=== PATIENT | female | born 1960 | race Caucasian/White ===

== ENCOUNTER 2019-07-19 14:43 | Emergency (ER) | payer SELFPAY ==
[~2019-07-19] VITALS: Ht 149.9 cm; Wt 54.4 kg
--- OUTSIDE RECORDS SUMMARY | 2019-07-19 14:45 | XMS REPORT | Clinical Summary ---
Author Author [facility] Organization [facility] Address Unknown Phone Unavailable Care Team Providers Care Sketch Artist Name Role Phone Sharpless PCP Allergies Comments Active Allergy Reactions Severity Noted Date blisters Latex, Natural Rubber Rash Low 02/22/2017 Penicillins Nausea And High 02/22/2017 Vomiting, Rash Pentazocine Lactate Nausea And 09/13/2017 Vomiting Medications End Date Status Medication Sig Dispensed Refills Start Date Active acyclovir (ZOVIRAX) 400 Take 400 mg 0 MG tablet by mouth daily. Active albuterol (ACCUNEB) 1.25 Take 1 ampule 0 mg/3 mL nebulizer by solution nebulization every 6 (six) hours as needed for Wheezing or Shortness of Breath. Active Problems Problem Noted Date Headache 09/13/2017 Thrombocytopenia 09/13/2017 Migrainous headache without aura 09/13/2017 Carotid arterial disease 09/13/2017 History of TIA (transient ischemic attack) 02/12/2017 Overview: 02/2017 [facility] Miranda Irizarry Adenovillous polyp of colon 02/12/2017 Overview: removed during colonoscopy Coronary artery disease 11/11/2016 Overview: 11/11/2016 40% blockage one artery Left side heart; tx'd with Atorvastatin (none since 03/2017 due to no insurance) Osteoarthritis, multiple sites Benign essential HTN Depression with anxiety Family History Medical History Relation Name Comments Alcohol abuse Brother Depression Brother maniac depressive Heart attack Father Hypertension Father No Known Problem Maternal Grandfather No Known Problem Maternal Grandmother Aneurysm Mother CEREBRAL Arthritis Mother Heart failure Mother No Known Problem Paternal Grandfather No Known Problem Paternal Grandmother Diabetes Sister Obesity Sister Relation Name Status Comments Brother mva (Age 50) Father (Age 82) Maternal Grandfather Maternal Grandmother Mother (Age 76) Paternal Grandfather Paternal Grandmother Sister Alive Social History Date Tobacco Use Types Packs/Day Years Used Current Every Day Smoker Cigarettes 1 40 Smokeless Tobacco: Never Used Tobacco Cessation: Ready to Quit: Yes; Counseling Given: Yes Alcohol Use Drinks/Week oz/Week Comments Yes 1 Standard 0.6 drinks or equivalent Sex Assigned at Date Recorded Not on file Industry Job Start Date Occupation Not on file Not on file Not on file Travel End Travel History Travel Start No recent travel history available. Last Filed Vital Signs Not on file Plan of Treatment Not on file Results Not on fileafter 07/18/2018 Advance Directives For more information, please contact: [address] [phone] Date Inactivated Comments Code Status Date Activated 09/15/2017 2:58 PM Partial Code 09/14/2017 12:26 PM This code status was determined by: Patient Drug Protocol After Arrest Occurs? Yes Mechanical Ventilation with Intubation? No Bag/Mask? Yes Internal/External Pacemaker? Yes Transfer to Critical Care? Yes Chest Compressions? Yes Defibrillation/Cardioversion? Yes 02/24/2017 6:03 PM Full Code 02/23/2017 12:32 AM This code status was determined by: Patient
--- OUTSIDE RECORDS SUMMARY | 2019-07-19 14:46 | XMS REPORT ---
Author Author [facility] Address Unknown Phone Unavailable Care Team Providers Care Drier Attendant Name Role Phone PIPPA PALOMINO Unavailable Unavailable BENNY Vivek TORRES Unavailable Unavailable KOSCIUK, MARIBEL Unavailable Unavailable RAY-DRODDY, ARTURO GWENDOLYN Unavailable Unavailable GRONING, DESIRAE Unavailable Unavailable NALAM, SLOAN YARED Unavailable Unavailable Problems This patient has no known problems. Allergies, Adverse Reactions, Alerts This patient has no known allergies or adverse reactions. Medications This patient has no known medications. Results Test Description Test Time Test Comments Text Results Atomic Results Result Comments XR HIP 2-3 VIEWs W AP PELVIS 2018-04-04 15:35:44 Pelvis and right hip 3 views:History: Right hip pain after fallingAn AP view of the pelvis and 2 view examination of the right hip were obtained.No pelvic fracture is identified. There is no widening of the pubic symphysis orsacroiliac joints. The sacral neural arches appear symmetric and intact.AP and frog-leg lateral views of the right hip show no fracture or dislocation.No joint space narrowing is noted. The soft tissues show no significantabnormality.Impression: No significant bony or joint abnormality.This final report was electronically signed by Dr Mil Chang MD 04/04/20183:29 PMDictated By: Alberto CHANG: 04/04/2018 15:35 XR L-S SPINE MIN 4 V 2018-04-04 15:35:04 Lumbar spine series 5 views:History: Fell, low back painAP, lateral, spot lateral and both oblique views were obtained. No fracture orsubluxation. No disc space narrowing is noted. A vacuum disc is present at L5-S1and there is facet arthrosis also noted at this level. No pars defects arenoted. The pedicles are intact.Impression: No acute abnormality of the lumbar spine. Degenerative changes atthe lumbosacral region as noted.This final report was electronically signed by Dr Mil Chang MD 04/04/20183:28 PMDictated By: Alberto CHANG: 04/04/2018 15:35 CULTURE, BLOOD 2018-01-11 22:55:00 er 5 Specimen: BloodCollected: 01/06/2018 20:20 Status: Final Last Updated: 01/11/2018 22:54 (1) er 5 Culture Result (Final) (Final) No Growth After 5 Days HEPATITIS C /w REFLEX 2018-01-11 07:53:00 HEPATITIS C AB (test dqbw=311972) >11.0 s/co ratio 0.0-0.9 HEPATITIS A IGM ANTIBODY(MAILOUT)2018-01-10 07:28:00* Test Item Value Reference Range Comments HEP A AB, IGM (test bgts=001038) Negative Negative XR ABD SERIES W/PA [id number] 07:03:33Procedure: XR ABD SERIES W/PA CXROrder Date: 01/09/2018 4:50 PMOrdering Provider: [facility] Indication: NV: Nausea and VomitingComparison: NoneFindings:Lungs are clear. Heart size is within normal limits.Abdomen views show non-obstructive bowel gas pattern. No pneumoperitoneum.Moderate volume stool burden.Surgical clips are seen in the right upper quadrant of the abdomen.Impression:No acute pulmonary process.Nonobstructive bowel gas pattern.This final report was electronically signed by Dr Mario Fish MD 01/10/20186:57 AMDictated By: ALFONZO FISHKDate: 01/10/2018 07:03CULTURE, [id number] 06:53:00Specimen: Urine SpecimensCollected: 01/07/2018 17:50 Status: Final Last Updated: 01/10/2018 06:53 Culture Result (Final) (Final) No Growth After 48 Hours CULTURE, [id number] 11:09:00er 5Specimen: Urine SpecimensCollected: 01/06/2018 21:30 Status: Final Last Updated: 01/08/2018 22:06 (1) er 5 Culture Result (Final) (Final) >100,000 cc/mL Gram Negative Bacilli Isolate (Final) (Final) Escherichia coli Amoxicillin/clavu 4 S Ampicillin >=32 R Aztreonam <=1 S Cefazolin <=4 S Cefepime <=1 S Ceftriaxone <=1 S Ciprofloxacin 0.5 S Gentamicin >=16 R Imipenem <=0.25 S Levofloxacin 1 S Meropenem <=0.25 S Nitrofurantoin <=16 S Tetracycline >=16 R Trimeth/Sulfa >=320 R ESBL Negative - Result before changed by [id number] on 01/08/2018 09:40: Isolate (Prelim) (Prelim) < Escherichia coli CULTURE, [id number] 11:00:00er 5Specimen: BloodCollected: 01/06/2018 20:05 Status: Final Last Updated: 01/08/2018 22:20 (1) er 5 Culture Result (Final) (Final) Gram Negative Bacilli Isolate (Final) (Final) Escherichia coli Amoxicillin/clavu 8 S Ampicillin >=32 R Aztreonam <=1 S Cefazolin < =4 S Cefepime <=1 S Ceftriaxone <=1 S Ciprofloxacin 1 S Gentamicin >=16 R Imipenem <=0.25 S Levofloxacin 1 S Meropenem <=0.25 S Tetracycline >=16 R Trimeth/Sulfa >=320 R ESBL Negative - Gram Stain (Final) (Final) Report called to Nurse Luke in ER @1345cdw 01/07/2018rb. 1 of 2 blood cultures positive Gram Negative Bacilli Result before changed by [id number] on 01/08/2018 14:31: Gram Stain (Prelim) (Prelim) Report called to Nurse Luke in ER @1345cdw 01/07/2018rb. -Gram Negative Bacilli 1 of 2 blood cultures positive Result before changed by [id number] on 01/08/2018 09:39: Culture Result (Prelim) (Prelim) -Escherichia coli ERYTHROCYTE SED RATE 2018-01-09 06:28:00* Test Item Value Reference Range Comments Sed Rate (test code=ESR) 44 mm/hr 0-35 EFFECTIVE 02-12-2014, THE METHODOLOGY USED FOR ERYTHROCYTE SEDIMENTATION RATE HAS CHANGED. THE NORMAL RANGES HAVE CHANGED. PLEASE NOTE THAT RANGES ARE DEFINED BY THE AGE OF THE PATIENT. NEW REFERENCE RANGES: Females 0-49 years old=0-25 mm/hr Females 50-999 years old=0- 35 mm/hr Males 0-49 years old=0-20 mm/hr Males 50-999 years old=0-25 mm/hr [id number] 06:09:00* Test Item Value Reference Range Comments Glucose (test code=GLU) 118 mg/dl 75-110 BUN (test code=BUN) 10.0 mg/dl 6.0-17.0 Creatinine (test code=CREA) 0.5 mg/dl 0.4-1.2 Sodium (test code=NA) 142 mmol/l 137-145 Potassium (test code=K) 3.6 mmol/l 3.5-5.0 Chloride (test code=CL) 110 mmol/l 98-107 CO2 (test code=CO2) 27 mmol/l 22-30 Calcium (test code=CALC) 8.2 mg/dl 8.4-10.2 T Protein (test code=TP) 5.8 gm/dl 5.1-8.7 Albumin (test code=ALB) 2.7 gm/dl 3.5-4.6 A/G Ratio (test code=AGRAT) 0.9 % 1.1-2.2 AST (SGOT) (test code=AST) 59 U/L 11-36 ALT (SGPT) (test code=ALT) 68 U/L 11-40 Alkaline Phos (test code=ALKP) 78 U/L 47-114 Total Bilirubin (test code=TBIL) 0.4 mg/dl 0.2-1.2 Globulin (test code=GLOBU) 3.1 gm/dl 2.3-3.5 Calcium, Corrected (test code=CALCCORR) 9.2 mg/dl 8.4-10.2 Various formulas exist for corrected serum calcium results, each yielding different values. This corrected result was based on the formula: Corrected Calcium=SerumCalcium + [0.8 * ( 4 - SerumAlbumin)] EGFR if (test code=EGFRAA) >60 mL/min/1.73m\\S\\2 EGFR if Non- (test code=EGFRNA) >60 mL/min/1.73m\\S\\2 Estimated Glomerular Filtration Rate (eGFR) Reference Intervals Decision Points for 18 years and older and average body mass: >=60 Does not exclude kidney disease. 30 - 59 Suggests moderate chronic kidney disease and indicates the need for further investigation including assessment of proteinuria and cardiovascular factors. < 30 Usually indicates a need for referral for assessment and management of chronic kidney failure. CBC WITH AUTO [id number] 05:47:00* Test Item Value Reference Range Comments WBC (test code=WBC) 5.98 10\\S\\3/ul 4.80-10.80 RBC (test code=RBC) 3.85 10\\S\\6/ul 4.20-5.40 Hemoglobin (test code=HGB) 12.2 gm/dl 12.0-14.0 Hematocrit (test code=HCT) 36.7 % 37.0-47.0 MCV (test code=MCV) 95.3 fL 81.0-99.0 MCH (test code=MCH) 31.7 pg 27.0-31.0 MCHC (test code=MCHC) 33.2 gm/dl 33.0-37.0 RDW (test code=RDWVC) 13.3 % 11.5-14.5 Platelet (test code=PLT) 141 10\\S\\3/ul 130-400 MPV (test code=MPV) 10.6 fL 7.4-10.4 "NOT MEASURED" RESULTS ARE DISPLAYED WHEN THE INSTRUMENT HAS A SUPPRESSED OR UNREPORTABLE RESULT. THIS WILL MOST OFTEN HAPPEN WITH THE MPV WHEN THERE IS AN ABNORMAL PLATELET DISTRIBUTION DUE TO A CR ITICAL LOW VALUE OR PLATELET CLUMPING. THE RDW MAY BE SUPPRESSED IF THERE ARE MULTIPLE PEAKS PRESENT ON THE RBC HISTOGRAM. IN THIS CASE, A MANUAL REVIEW OF THE SLIDE WILL BE PERFORMED, AND RBC MORPHOLOGY WILL BE NOTED ON THE REPORT. NE% (test code=NE) 63.9 % 42.0-75.0 LY% (test code=LY) 23.1 % 13.0-42.0 MO% (test code=MO) 10.2 % 4.0-14.0 EO% (test code=EO) 2.0 % 1.0-3.0 BA% (test code=BA) 0.3 % 1.0-3.0 IG% (test code=IG%) 0.5 % 0.0-0.4 CBC AUTO diffHEPATITIS B CORE AB, [id number] 06:18:00* Test Item Value Reference Range Comments HEPATITIS B CORE AB TOTAL (test code=HEPBCORE) 0.02 Negative HEP B SURFACE [id number] 06:18:00* Test Item Value Reference Range Comments FT (test code=HBSAB) Negative (qualifier value) Negative Hep B Surface Ab (Signal Value) (test code=HBSAB.SV) 0.00 mIU/mL 0.00-4.99 aHBs Signal Cutoff Interpretation Guide: < 5.00 mIU/mLNegativePatient is considered to be not immuned to infection with HBV. >=5.00 and 12.0 mIU/mLIndeterminateUnable to determine if anti-HBs is present at levels consistent with immunity. Patient's immune status should be further assessed by considering other clinical information or retesting another specimen drawn at a later time. > 12.0 mIU/mLPositiveAnti-HBs detected at > 10 mIU/ml. Patient is considered to be immune to infection with HBV. It has not been determined what the clinical significance is for values greater than >=12 mIU/mL, other than the individual is considered to be immuned to HBV infection. [id number] 05:04:00* Test Item Value Reference Range Comments Glucose (test code=GLU) 125 mg/dl 75-110 BUN (test code=BUN) 14.0 mg/dl 6.0-17.0 Creatinine (test code=CREA) 0.6 mg/dl 0.4-1.2 Sodium (test code=NA) 144 mmol/l 137-145 Potassium (test code=K) 3.9 mmol/l 3.5-5.0 Chloride (test code=CL) 110 mmol/l 98-107 CO2 (test code=CO2) 27 mmol/l 22-30 Calcium (test code=CALC) 8.2 mg/dl 8.4-10.2 T Protein (test code=TP) 6.3 gm/dl 5.1-8.7 Albumin (test code=ALB) 3.0 gm/dl 3.5-4.6 A/G Ratio (test code=AGRAT) 0.9 % 1.1-2.2 AST (SGOT) (test code=AST) 60 U/L 11-36 ALT (SGPT) (test code=ALT) 73 U/L 11-40 Alkaline Phos (test code=ALKP) 91 U/L 47-114 Total Bilirubin (test code=TBIL) 0.5 mg/dl 0.2-1.2 Globulin (test code=GLOBU) 3.3 gm/dl 2.3-3.5 Calcium, Corrected (test code=CALCCORR) 9.0 mg/dl 8.4-10.2 Various formulas exist for corrected serum calcium results, each yielding different values. This corrected result was based on the formula: Corrected Calcium=SerumCalcium + [0.8 * ( 4 - SerumAlbumin)] EGFR if (test code=EGFRAA) >60 mL/min/1.73m\\S\\2 EGFR if Non- (test code=EGFRNA) >60 mL/min/1.73m\\S\\2 Estimated Glomerular Filtration Rate (eGFR) Reference Intervals Decision Points for 18 years and older and average body mass: >=60 Does not exclude kidney disease. 30 - 59 Suggests moderate chronic kidney disease and indicates the need for further investigation including assessment of proteinuria and cardiovascular factors. < 30 Usually indicates a need for referral for assessment and management of chronic kidney failure. [id number] 05:04:00* Test Item Value Reference Range Comments Magnesium (test code=MG) 2.2 mg/dl 1.6-2.3 CBC WITH AUTO [id number] 04:45:00* Test Item Value Reference Range Comments WBC (test code=WBC) 7.54 10\\S\\3/ul 4.80-10.80 RBC (test code=RBC) 3.92 10\\S\\6/ul 4.20-5.40 Hemoglobin (test code=HGB) 12.7 gm/dl 12.0-14.0 Hematocrit (test code=HCT) 37.7 % 37.0-47.0 MCV (test code=MCV) 96.2 fL 81.0-99.0 MCH (test code=MCH) 32.4 pg 27.0-31.0 MCHC (test code=MCHC) 33.7 gm/dl 33.0-37.0 RDW (test code=RDWVC) 13.5 % 11.5-14.5 Platelet (test code=PLT) 142 10\\S\\3/ul 130-400 MPV (test code=MPV) 10.6 fL 7.4-10.4 "NOT MEASURED" RESULTS ARE DISPLAYED WHEN THE INSTRUMENT HAS A SUPPRESSED OR UNREPORTABLE RESULT. THIS WILL MOST OFTEN HAPPEN WITH THE MPV WHEN THERE IS AN ABNORMAL PLATELET DISTRIBUTION DUE TO A CR ITICAL LOW VALUE OR PLATELET CLUMPING. THE RDW MAY BE SUPPRESSED IF THERE ARE MULTIPLE PEAKS PRESENT ON THE RBC HISTOGRAM. IN THIS CASE, A MANUAL REVIEW OF THE SLIDE WILL BE PERFORMED, AND RBC MORPHOLOGY WILL BE NOTED ON THE REPORT. NE% (test code=NE) 68.6 % 42.0-75.0 LY% (test code=LY) 15.9 % 13.0-42.0 MO% (test code=MO) 13.1 % 4.0-14.0 EO% (test code=EO) 1.3 % 1.0-3.0 BA% (test code=BA) 0.4 % 1.0-3.0 IG% (test code=IG%) 0.7 % 0.0-0.4 URINALYSIS WITH [id number] 18:13:00* Test Item Value Reference Range Comments Color (test code=UCOLR) YELLOW Clarity (test code=UCLAR) SL CLOUDY Glucose (test code=UGLUC) NEGATIVE NEGATIVE Bilirubin (test code=UBILI) NEGATIVE NEGATIVE Ketones (test code=UKET) NEGATIVE NEGATIVE Specific [place] (test code=USPGR) >=1.030 1.005-1.030 Blood (test code=UBLD) LARGE NEGATIVE PH (test code=UPH) 6.0 4.5-8.0 Protein (test code=UPROT) 100 NEGATIVE Urobilinogen (test code=U UROB) 4.0 >0.2 Nitrite (test code=UNITR) NEGATIVE NEGATIVE Leukocyte Esterase (test code=ULEUK) NEGATIVE NEGATIVE WBC (test code=WBCUR) 40-50 0-5 RBC (test code=RBCUR) 20-30 0-5 Epithial Cells (test code=U EPI) 30-40 0-10 Mucous (test code=UMUC) Trace None Seen Bacteria (test code=UBACT) Trace None Seen,Trace ER 5CT ABD/ PELVIS W/O CON (RENAL STONE)2018-01-07 18:07:05er 4Procedure: CT ABD/ PELVIS W/O CON (RENAL STONE)Exam date: 01/07/2018 4:41 PMOrdering Provider: CAYETANO MENDOZAClinical Indication: abnormal labsComparison: NoneTechnique: Multiple axial helical CT images of the abdomen and pelvis wer eobtained . Coronal and sagittal reformatted images were also obtained.Th is exam was performed according to the our departmental dose-optimizationprogram which includes automated exposure control, adjustment of the mA and/orkV accord ing to patient size and/or use of iterative reconstruction techniques.Findings:P osterior right diaphragmatic Bochdalek hernia.Partially visualized noncontrast e valuation of the liver and spleen isunremarkable. Surgical absence of the gallbl adder. Pancreas is unremarkable.Bilateral adrenal glands are unremarkable.Bilate ral kidneys are unremarkable without evidence of radiopaque nephroureteralcalcul i. There is mild left renal pelvic dilation. Small bowel isnonobstructive. No pn eumoperitoneum or pathologic adenopathy is identified onthis noncontrasted exami nation.Appendix is unremarkable. Appendicolith at the tip. Patchy colonic stool. Scattered colonic diverticulosis.No free fluid in the pelvis. Small fat-containi ng umbilical hernia. Bladder isunremarkable. Uterus is surgically absent.Osseous structures are nonacute.Impression:No radiopaque nephroureteral calculi. Mild l eft renal pelvic dilation withoutobstructive stone. No substantial hydroureteron ephrosis.Scattered colonic diverticulosis.This final report was electronically s igned by Dr Gaby Jimenez MD 01/07/2018 6:00PMDictated By: GABY JIMENEZDate: 01/07 18:07LACTIC ACID [id number] 17:25:00* Test Item Value Reference Range Comments LACTATE (test code=LAC) 1.2 mmol/l 0.7-2.0 er [id number] 17:25:00* Test Item Value Reference Range Comments Glucose (test code=GLU) 143 mg/dl 75-110 BUN (test code=BUN) 12.0 mg/dl 6.0-17.0 Creatinine (test code=CREA) 0.6 mg/dl 0.4-1.2 Sodium (test code=NA) 140 mmol/l 137-145 Potassium (test code=K) 3.7 mmol/l 3.5-5.0 Chloride (test code=CL) 106 mmol/l 98-107 CO2 (test code=CO2) 24 mmol/l 22-30 Calcium (test code=CALC) 8.5 mg/dl 8.4-10.2 T Protein (test code=TP) 6.5 gm/dl 5.1-8.7 Albumin (test code=ALB) 3.3 gm/dl 3.5-4.6 A/G Ratio (test code=AGRAT) 1.0 % 1.1-2.2 AST (SGOT) (test code=AST) 77 U/L 11-36 ALT (SGPT) (test code=ALT) 81 U/L 11-40 Alkaline Phos (test code=ALKP) 86 U/L 47-114 Total Bilirubin (test code=TBIL) 0.9 mg/dl 0.2-1.2 Globulin (test code=GLOBU) 3.2 gm/dl 2.3-3.5 Calcium, Corrected (test code=CALCCORR) 9.1 mg/dl 8.4-10.2 Various formulas exist for corrected serum calcium results, each yielding different values. This corrected result was based on the formula: Corrected Calcium=SerumCalcium + [0.8 * ( 4 - SerumAlbumin)] EGFR if (test code=EGFRAA) >60 mL/min/1.73m\\S\\2 EGFR if Non- (test code=EGFRNA) >60 mL/min/1.73m\\S\\2 Estimated Glomerular Filtration Rate (eGFR) Reference Intervals Decision Points for 18 years and older and average body mass: >=60 Does not exclude kidney disease. 30 - 59 Suggests moderate chronic kidney disease and indicates the need for further investigation including assessment of proteinuria and cardiovascular factors. < 30 Usually indicates a need for referral for assessment and management of chronic kidney failure. er [facility] WITH AUTO [id number] 17:15:00* Test Item Value Reference Range Comments WBC (test code=WBC) 9.74 10\\S\\3/ul 4.80-10.80 RBC (test code=RBC) 4.11 10\\S\\6/ul 4.20-5.40 Hemoglobin (test code=HGB) 13.0 gm/dl 12.0-14.0 Hematocrit (test code=HCT) 38.7 % 37.0-47.0 MCV (test code=MCV) 94.2 fL 81.0-99.0 MCH (test code=MCH) 31.6 pg 27.0-31.0 MCHC (test code=MCHC) 33.6 gm/dl 33.0-37.0 RDW (test code=RDWVC) 13.4 % 11.5-14.5 Platelet (test code=PLT) 149 10\\S\\3/ul 130-400 MPV (test code=MPV) 10.5 fL 7.4-10.4 "NOT MEASURED" RESULTS ARE DISPLAYED WHEN THE INSTRUMENT HAS A SUPPRESSED OR UNREPORTABLE RESULT. THIS WILL MOST OFTEN HAPPEN WITH THE MPV WHEN THERE IS AN ABNORMAL PLATELET DISTRIBUTION DUE TO A CR ITICAL LOW VALUE OR PLATELET CLUMPING. THE RDW MAY BE SUPPRESSED IF THERE ARE MULTIPLE PEAKS PRESENT ON THE RBC HISTOGRAM. IN THIS CASE, A MANUAL REVIEW OF THE SLIDE WILL BE PERFORMED, AND RBC MORPHOLOGY WILL BE NOTED ON THE REPORT. NE% (test code=NE) 74.6 % 42.0-75.0 LY% (test code=LY) 10.6 % 13.0-42.0 MO% (test code=MO) 13.2 % 4.0-14.0 EO% (test code=EO) 0.8 % 1.0-3.0 BA% (test code=BA) 0.3 % 1.0-3.0 IG% (test code=IG%) 0.5 % 0.0-0.4 er 4XR CHEST AP/PA 1 [id number] 08:45:44er 5Procedure: AP View ChestExam date: 01/06/2018 8:14 PMOrdering Provider: MARIBEL Fabian Indication: abdominal pain,Comparison: September 13, 2017Findings:Cardiomediastinal silhouette is within normal limits.The lungs are clear. No large pleural effusions or pneumothorax. Osseousstructures are nonacute.No evidence of active tuberculosis.Lower cervical discectomy fusion construct.Impression:No acute cardiopulmonary process.This final report was electronically signed by Dr Gaby Jimenez MD 01/07/2018 8:39AMDictated By: GABY JIMENEZDate: 01/07/2018 08:45US RENAL & BLADDER (KIDNEYS)2018-01-07 08:12:06er 5Procedure: US RENALExam Date: 01/06/2018 8:14 PMOrdering Provider: MARIBEL KOSCIUKClinical Indication: Pain, kidney failureComparison: NoneTechnique: Real-time ultrasonography was obtained over the kidneys and urinarybladder and cash applications representative images were recorded.Findings:The right kidney measures 12.1 cm in length. Left kidney measures 12.6 cm inlength.No stones or hydronephrosis bilaterally. Normal renal cortical echogenicity.Bilateral ureteral jets are visualized. Echogenic debris is noted within thebladder.Impression:Unremarkable appearance of the kidneys.Echogenic debris within the bladder, likely relating to complex urine. Correlatewith urinalysis.This final report was electronically signed by Dr Gaby Jimenez MD 01/07/2018 8:05AMDictated By: GABY JIMENEZDate: 01/07/2018 08:12CB WITH AUTO [id number] 20:55:00* Test Item Value Reference Range Comments WBC (test code=WBC) 10.49 10\\S\\3/ul 4.80-10.80 RBC (test code=RBC) 4.22 10\\S\\6/ul 4.20-5.40 Hemoglobin (test code=HGB) 13.6 gm/dl 12.0-14.0 Hematocrit (test code=HCT) 39.4 % 37.0-47.0 MCV (test code=MCV) 93.4 fL 81.0-99.0 MCH (test code=MCH) 32.2 pg 27.0-31.0 MCHC (test code=MCHC) 34.5 gm/dl 33.0-37.0 RDW (test code=RDWVC) 13.4 % 11.5-14.5 Platelet (test code=PLT) 180 10\\S\\3/ul 130-400 MPV (test code=MPV) 10.7 fL 7.4-10.4 "NOT MEASURED" RESULTS ARE DISPLAYED WHEN THE INSTRUMENT HAS A SUPPRESSED OR UNREPORTABLE RESULT. THIS WILL MOST OFTEN HAPPEN WITH THE MPV WHEN THERE IS AN ABNORMAL PLATELET DISTRIBUTION DUE TO A CR ITICAL LOW VALUE OR PLATELET CLUMPING. THE RDW MAY BE SUPPRESSED IF THERE ARE MULTIPLE PEAKS PRESENT ON THE RBC HISTOGRAM. IN THIS CASE, A MANUAL REVIEW OF THE SLIDE WILL BE PERFORMED, AND RBC MORPHOLOGY WILL BE NOTED ON THE REPORT. NE% (test code=NE) 72.2 % 42.0-75.0 LY% (test code=LY) 15.1 % 13.0-42.0 MO% (test code=MO) 11.2 % 4.0-14.0 EO% (test code=EO) 0.4 % 1.0-3.0 BA% (test code=BA) 0.3 % 1.0-3.0 IG% (test code=IG%) 0.8 % 0.0-0.4 ER 5FLU [id number] 20:54:00* Test Item Value Reference Range Comments Flu A Screen (test code=FLUA) Negative Negative EFFECTIVE 11/02/2013 - A method change has occurred. A molecular method for Flu testing will replace the current method. Both Flu A and Flu B will be tested and results will continue to be listed as "Negative or Positive". While this method is more specific in the detection of both strains, confirmatory testing is available upon request. ldh Flu B Screen (test code=FLUB) Negative Negative EFFECTIVE 11/02/2013 - A method change has occurred. A molecular method for Flu testing will replace the current method. Both Flu A and Flu B will be tested and results will continue to be listed as "Negative or Positive". While this method is more specific in the detection of both strains, confirmatory testing is available upon request. ldh er 5LACTIC ACID [id number] 20:49:00* Test Item Value Reference Range Comments LACTATE (test code=LAC) 1.6 mmol/l 0.7-2.0 er [id number] 20:49:00* Test Item Value Reference Range Comments Glucose (test code=GLU) 182 mg/dl 75-110 BUN (test code=BUN) 15.0 mg/dl 6.0-17.0 Creatinine (test code=CREA) 0.5 mg/dl 0.4-1.2 Sodium (test code=NA) 140 mmol/l 137-145 Potassium (test code=K) 3.6 mmol/l 3.5-5.0 Chloride (test code=CL) 104 mmol/l 98-107 CO2 (test code=CO2) 25 mmol/l 22-30 Calcium (test code=CALC) 8.6 mg/dl 8.4-10.2 T Protein (test code=TP) 7.2 gm/dl 5.1-8.7 Albumin (test code=ALB) 3.6 gm/dl 3.5-4.6 A/G Ratio (test code=AGRAT) 1.0 % 1.1-2.2 AST (SGOT) (test code=AST) 76 U/L 11-36 ALT (SGPT) (test code=ALT) 83 U/L 11-40 Alkaline Phos (test code=ALKP) 81 U/L 47-114 Total Bilirubin (test code=TBIL) 1.0 mg/dl 0.2-1.2 Globulin (test code=GLOBU) 3.6 gm/dl 2.3-3.5 Calcium, Corrected (test code=CALCCORR) 8.9 mg/dl 8.4-10.2 Various formulas exist for corrected serum calcium results, each yielding different values. This corrected result was based on the formula: Corrected Calcium=SerumCalcium + [0.8 * ( 4 - SerumAlbumin)] EGFR if (test code=EGFRAA) >60 mL/min/1.73m\\S\\2 EGFR if Non- (test code=EGFRNA) >60 mL/min/1.73m\\S\\2 Estimated Glomerular Filtration Rate (eGFR) Reference Intervals Decision Points for 18 years and older and average body mass: >=60 Does not exclude kidney disease. 30 - 59 Suggests moderate chronic kidney disease and indicates the need for further investigation including assessment of proteinuria and cardiovascular factors. < 30 Usually indicates a need for referral for assessment and management of chronic kidney failure. ER 5LIPASE, [id number] 20:49:00* Test Item Value Reference Range Comments Lipase (test code=LIPA) 71 U/L 8-223 ER 5URINALYSIS WITH [id number] 20:07:00* Test Item Value Reference Range Comments Color (test code=UCOLR) YELLOW Clarity (test code=UCLAR) CLOUDY Glucose (test code=UGLUC) NEGATIVE NEGATIVE Bilirubin (test code=UBILI) SMALL NEGATIVE Ketones (test code=UKET) NEGATIVE NEGATIVE Specific [place] (test code=USPGR) 1.025 1.005-1.030 Blood (test code=UBLD) LARGE NEGATIVE PH (test code=UPH) 5.5 4.5-8.0 Protein (test code=UPROT) >=300 NEGATIVE Urobilinogen (test code=U UROB) 2.0 >0.2 Nitrite (test code=UNITR) POSITIVE NEGATIVE Leukocyte Esterase (test code=ULEUK) LARGE NEGATIVE WBC (test code=WBCUR) 10-20 0-5 RBC (test code=RBCUR) 10-20 0-5 Epithial Cells (test code=U EPI) 0-5 0-10 Mucous (test code=UMUC) Trace None Seen Bacteria (test code=UBACT) 3+ None Seen,Trace BASIC METABOLIC [id number] 05:13:00* Test Item Value Reference Range Comments SODIUM (BEAKER) (test flqz=798) 139 meq/L 135-148 POTASSIUM (BEAKER) (test nkyk=830) 4.2 meq/L 3.5-5.5 CHLORIDE (BEAKER) (test qlxv=396) 108 meq/L 98-106 CO2 (BEAKER) (test cnwt=199) 22 meq/L 20-31 BLOOD UREA NITROGEN (BEAKER) (test fbxw=047) 15 mg/dL 10-26 CREATININE (BEAKER) (test uccs=368) 0.61 mg/dL 0.50-1.20 GLUCOSE RANDOM (BEAKER) (test rovw=227) 108 mg/dL 70-110 CALCIUM (BEAKER) (test ptiu=990) 8.5 mg/dL 8.5-10.5 EGFR (BEAKER) (test fyyu=5792) 100 mL/min/1.73 sq m ESTIMATED GFR IS NOT ACCURATE CREATININE CLEARANCE IN PREDICTING GLOMERULAR FILTRATION RATE. ESTIMATED GFR IS NOT APPLICABLE FOR DIALYSIS PATIENTS. CT, CTANGIO [id number] 11:09:00FINAL REPORT CTA head with contrast INDICATION: Headache, aneurysm TECHNIQUE: Axial noncontrast CT images of the head were obtained. Subsequently, axial intravenous contrast enhanced CTA images of the head were obtained. Multiplanar and 3-D volume rendered reconstruction images were generated on a separate workstation for better delineation of the vascular anatomy. This exam was performed according to our departmental dose optimization program which includes automated exposure control, adjustment of the mA and/or kV according to patient size and/or use of iterative reconstruction technique. COMPARISON: MRA head 02/23/2017 FINDINGS: CT head:There is no acute intracranial hemorrhage or mass effect. There are no specific CT findings of acute infarct. Please note that CT is insensitive for early or small infarcts. There is generalized mild parenchymal volume loss without hydrocephalus or midline shift. There is minimal chronic sinus mucosal thickening and mild left and trace right mastoid air cell fluid. The orbits are unremarkable. The calvarium is intact. 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 There is no major branch occlusion or significant stenosis in the proximal [place] vessels. 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 IMPRESSION: 1. 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 2. No [place] major branch occlusion or significant stenosis . Signed: Zeke Torres MDReport Verified Date/Time: 09/14/2017 11:09:29 Reading Location: [address] Neuro Reading Room C METABOLIC [id number] 06:10:00* Test Item Value Reference Range Comments SODIUM (BEAKER) (test lreg=407) 143 meq/L 135-148 POTASSIUM (BEAKER) (test ovvq=879) 3.9 meq/L 3.5-5.5 CHLORIDE (BEAKER) (test osee=767) 114 meq/L 98-106 CO2 (BEAKER) (test aaro=365) 22 meq/L 20-31 BLOOD UREA NITROGEN (BEAKER) (test wprw=199) 15 mg/dL 10-26 CREATININE (BEAKER) (test wcpr=458) 0.62 mg/dL 0.50-1.20 GLUCOSE RANDOM (BEAKER) (test cezd=606) 107 mg/dL 70-110 CALCIUM (BEAKER) (test ebjb=761) 8.4 mg/dL 8.5-10.5 EGFR (BEAKER) (test nibc=8545) 99 mL/min/1.73 sq m ESTIMATED GFR IS NOT ACCURATE CREATININE CLEARANCE IN PREDICTING GLOMERULAR FILTRATION RATE. ESTIMATED GFR IS NOT APPLICABLE FOR DIALYSIS PATIENTS. CBC W/PLT COUNT & AUTO [id number] 05:41:00* Test Item Value Reference Range Comments WHITE BLOOD CELL COUNT (BEAKER) (test gfqc=518) 6.1 K/ L 4.0-10.0 RED BLOOD CELL COUNT (BEAKER) (test dcoi=379) 3.86 M/ L 4.00-5.00 HEMOGLOBIN (BEAKER) (test lxyv=328) 12.7 GM/DL 12.0-15.0 HEMATOCRIT (BEAKER) (test mvby=381) 37.1 % 36.0-45.0 MEAN CORPUSCULAR VOLUME (BEAKER) (test ecrk=807) 96.1 fL 82.0-99.0 MEAN CORPUSCULAR HEMOGLOBIN (BEAKER) (test xksd=713) 32.8 pg 27.0-33.0 MEAN CORPUSCULAR HEMOGLOBIN CONC (BEAKER) (test ptwt=883) 34.1 GM/DL 32.0-36.0 RED CELL DISTRIBUTION WIDTH (BEAKER) (test ejkp=921) 13.5 % 12.0-15.0 PLATELET COUNT (BEAKER) (test xzbr=100) 137 K/CU MM 150-430 MEAN PLATELET VOLUME (BEAKER) (test ffxq=586) 8.2 fL 6.5-10.5 NUCLEATED RED BLOOD CELLS (BEAKER) (test jqoz=532) 0 /100 WBC 0-0 NEUTROPHILS RELATIVE PERCENT (BEAKER) (test midk=922) 59 % LYMPHOCYTES RELATIVE PERCENT (BEAKER) (test wszt=780) 30 % MONOCYTES RELATIVE PERCENT (BEAKER) (test rjsc=841) 8 % EOSINOPHILS RELATIVE PERCENT (BEAKER) (test mtzk=016) 2 % BASOPHILS RELATIVE PERCENT (BEAKER) (test dkdv=505) 1 % NEUTROPHILS ABSOLUTE COUNT (BEAKER) (test jokz=796) 3.60 K/ L 1.80-8.00 LYMPHOCYTES ABSOLUTE COUNT (BEAKER) (test eavu=416) 1.80 K/ L 1.48-4.50 MONOCYTES ABSOLUTE COUNT (BEAKER) (test tclo=711) 0.50 K/ L 0.00-1.30 EOSINOPHILS ABSOLUTE COUNT (BEAKER) (test mdbf=023) 0.10 K/ L 0.00-0.50 BASOPHILS ABSOLUTE COUNT (BEAKER) (test wdkm=394) 0.10 K/ L 0.00-0.20 [id number] 16:51:00* Test Item Value Reference Range Comments Glucose (test code=GLU) 93 mg/dl 75-110 BUN (test code=BUN) 13.0 mg/dl 6.0-17.0 Creatinine (test code=CREA) 0.7 mg/dl 0.4-1.2 Sodium (test code=NA) 147 mmol/l 137-145 Potassium (test code=K) 3.9 mmol/l 3.5-5.0 Chloride (test code=CL) 108 mmol/l 98-107 CO2 (test code=CO2) 31 mmol/l 22-30 Calcium (test code=CALC) 9.9 mg/dl 8.4-10.2 T Protein (test code=TP) 7.6 gm/dl 5.1-8.7 Albumin (test code=ALB) 4.1 gm/dl 3.5-4.6 A/G Ratio (test code=AGRAT) 1.2 % 1.1-2.2 AST (SGOT) (test code=AST) 58 U/L 11-36 ALT (SGPT) (test code=ALT) 58 U/L 11-40 Alkaline Phos (test code=ALKP) 88 U/L 47-114 Total Bilirubin (test code=TBIL) 0.4 mg/dl 0.2-1.2 Globulin (test code=GLOBU) 3.5 gm/dl 2.3-3.5 Anion Gap (test code=GAP) 8 Calcium, Corrected (test code=CALCCORR) 9.8 mg/dl 8.4-10.2 Various formulas exist for corrected serum calcium results, each yielding different values. This corrected result was based on the formula: Corrected Calcium=SerumCalcium + [0.8 * ( 4 - SerumAlbumin)] EGFR if (test code=EGFRAA) >60 mL/min/1.73m\\S\\2 EGFR if Non- (test code=EGFRNA) >60 mL/min/1.73m\\S\\2 Estimated Glomerular Filtration Rate (eGFR) Reference Intervals Decision Points for 18 years and older and average body mass: >=60 Does not exclude kidney disease. 30 - 59 Suggests moderate chronic kidney disease and indicates the need for further investigation including assessment of proteinuria and cardiovascular factors. < 30 Usually indicates a need for referral for assessment and management of chronic kidney failure. XR CHEST AP/PA 1 [id number] 16:31:28Exam: AP portable chest DATE OF EXAM: 09/13/2017 3:23PMINDICATION: headacheThe lungs are clear. The cardiomediastinal silhouette is within normal limits.The bony thorax shows no significant abnormality.Impression:No active cardiopulmonary disease.This final report was electronically signed by Dr Mil Chang MD 09/13/20174:25 PMDictated By: MIL CHANGDate: 09/13/2017 16:31URINALYSIS WITH [id number] 16:11:00* Test Item Value Reference Range Comments Color (test code=UCOLR) Yellow Clarity (test code=UCLAR) CLEAR Glucose (test code=UGLUC) NEGATIVE NEGATIVE Bilirubin (test code=UBILI) NEGATIVE NEGATIVE Ketones (test code=UKET) NEGATIVE NEGATIVE Specific [place] (test code=USPGR) 1.010 1.005-1.030 Blood (test code=UBLD) TRACE-INTACT NEGATIVE PH (test code=UPH) 6.0 4.5-8.0 Protein (test code=UPROT) NEGATIVE NEGATIVE Urobilinogen (test code=U UROB) 0.2 >0.2 Nitrite (test code=UNITR) NEGATIVE NEGATIVE Leukocyte Esterase (test code=ULEUK) NEGATIVE NEGATIVE WBC (test code=WBCUR) 0-2 0-5 RBC (test code=RBCUR) 3-5 0-5 Epithial Cells (test code=U EPI) 10-20 0-10 Mucous (test code=UMUC) Trace None Seen Bacteria (test code=UBACT) Trace None Seen,Trace CBC WITH AUTO [id number] 16:08:00* Test Item Value Reference Range Comments WBC (test code=WBC) 7.08 10\\S\\3/ul 4.80-10.80 RBC (test code=RBC) 4.42 10\\S\\6/ul 4.20-5.40 Hemoglobin (test code=HGB) 14.4 gm/dl 12.0-14.0 Hematocrit (test code=HCT) 41.4 % 37.0-47.0 MCV (test code=MCV) 93.7 fL 81.0-99.0 MCH (test code=MCH) 32.6 pg 27.0-31.0 MCHC (test code=MCHC) 34.8 gm/dl 33.0-37.0 RDW (test code=RDWVC) 12.7 % 11.5-14.5 Platelet (test code=PLT) 171 10\\S\\3/ul 130-400 MPV (test code=MPV) 10.5 fL 7.4-10.4 NE% (test code=NE) 58.3 % 42.0-75.0 LY% (test code=LY) 31.1 % 13.0-42.0 MO% (test code=MO) 8.6 % 4.0-14.0 EO% (test code=EO) 1.1 % 1.0-3.0 BA% (test code=BA) 0.6 % 1.0-3.0 IG% (test code=IG%) 0.3 % 0.0-0.4 AUTO DIFFCT HEAD W/O [id number] 16:06:56CT HEAD WITHOUT CONTRAST:DATE OF EXAM: 09/13/2017INDICATION: headache h/o aneurysmNoncontrast CT head was performed. Total DLP 758 mGy-cm.FINDINGS:No intracranial hemorrhage, mass effect or midline shift is identified. Theventricular system is normal in size and configuration. The basal cisterns arepatent.The visualized portions of the mastoids, paranasal sinuses and orbits show nosignificant abnormality. No significant change is noted compared to February.IMPRESSION:No acute intracranial abnormality.This final report was electronically signed by Dr Mil Chang MD 09/13/20174:00 PMDictated By: MIL CHANGDate: 2016 16:06BASI METABOLIC [id number] 07:38:00* Test Item Value Reference Range Comments SODIUM (BEAKER) (test yuvr=022) 142 meq/L 136-145 POTASSIUM (BEAKER) (test thcs=976) 4.0 meq/L 3.5-5.1 CHLORIDE (BEAKER) (test aeaj=794) 112 meq/L 98-107 CO2 (BEAKER) (test pqkk=333) 23 meq/L 22-29 BLOOD UREA NITROGEN (BEAKER) (test ghkt=570) 14 mg/dL 7-21 CREATININE (BEAKER) (test btlx=954) 0.61 mg/dL 0.57-1.25 GLUCOSE RANDOM (BEAKER) (test wjkx=814) 95 mg/dL 70-105 CALCIUM (BEAKER) (test frlk=177) 8.2 mg/dL 8.4-10.2 EGFR (BEAKER) (test ufne=6165) 101 mL/min/1.73 sq m ESTIMATED GFR IS NOT ACCURATE CREATININE CLEARANCE IN PREDICTING GLOMERULAR FILTRATION RATE. ESTIMATED GFR IS NOT APPLICABLE FOR DIALYSIS PATIENTS. CBC W/PLT COUNT & AUTO [id number] 07:19:00* Test Item Value Reference Range Comments WHITE BLOOD CELL COUNT (BEAKER) (test xvua=417) 5.6 K/ L 4.0-10.0 RED BLOOD CELL COUNT (BEAKER) (test zgby=429) 3.94 M/ L 4.00-5.00 HEMOGLOBIN (BEAKER) (test mblw=931) 13.5 GM/DL 12.0-15.0 HEMATOCRIT (BEAKER) (test ygmi=947) 38.8 % 36.0-45.0 MEAN CORPUSCULAR VOLUME (BEAKER) (test aoge=871) 98.4 fL 82.0-99.0 MEAN CORPUSCULAR HEMOGLOBIN (BEAKER) (test ifgh=987) 34.3 pg 27.0-33.0 MEAN CORPUSCULAR HEMOGLOBIN CONC (BEAKER) (test ukna=750) 34.8 GM/DL 32.0-36.0 RED CELL DISTRIBUTION WIDTH (BEAKER) (test chie=106) 11.7 % 10.3-14.2 PLATELET COUNT (BEAKER) (test cejr=781) 122 K/CU MM 150-430 MEAN PLATELET VOLUME (BEAKER) (test yhqu=504) 7.6 fL 6.5-10.5 NUCLEATED RED BLOOD CELLS (BEAKER) (test iyrs=544) 0 /100 WBC 0-0 NEUTROPHILS RELATIVE PERCENT (BEAKER) (test aazo=367) 45 % LYMPHOCYTES RELATIVE PERCENT (BEAKER) (test ojqf=894) 39 % MONOCYTES RELATIVE PERCENT (BEAKER) (test pirv=905) 10 % EOSINOPHILS RELATIVE PERCENT (BEAKER) (test jqof=281) 5 % BASOPHILS RELATIVE PERCENT (BEAKER) (test azgo=509) 1 % NEUTROPHILS ABSOLUTE COUNT (BEAKER) (test vyta=957) 2.53 K/ L 1.80-8.00 LYMPHOCYTES ABSOLUTE COUNT (BEAKER) (test uzbu=172) 2.21 K/ L 1.48-4.50 MONOCYTES ABSOLUTE COUNT (BEAKER) (test wlmy=980) 0.54 K/ L 0.00-1.30 EOSINOPHILS ABSOLUTE COUNT (BEAKER) (test euhi=725) 0.29 K/ L 0.00-0.50 BASOPHILS ABSOLUTE COUNT (BEAKER) (test aswu=784) 0.05 K/ L 0.00-0.20 0.00HEMOGLOBIN [id number] 11:49:00* Test Item Value Reference Range Comments HEMOGLOBIN A1C (BEAKER) (test xsst=583) 5.4 % 4.3-6.1 [id number] 10:50:00* Test Item Value Reference Range Comments RPR SCREEN (BEAKER) (test dwic=782) Nonreactive Nonreactive FOLATE, [id number] 03:18:00* Test Item Value Reference Range Comments FOLATE (BEAKER) (test ymgo=980) 11.2 ng/mL >=7.0 Effective 10/01/2014: Folate Reference Range ChangeNew: >=7.0 Previous: >=5.4 TSH/FREE T4 IF [id number] 03:18:00* Test Item Value Reference Range Comments THYROID STIMULATING HORMONE (BEAKER) (test jgba=455) 1.82 uIU/mL 0.35-4.94 CBC W/PLT COUNT & AUTO [id number] 03:02:00* Test Item Value Reference Range Comments WHITE BLOOD CELL COUNT (BEAKER) (test xzpw=617) 6.1 K/ L 4.0-10.0 RED BLOOD CELL COUNT (BEAKER) (test vhlu=723) 4.25 M/ L 4.00-5.00 HEMOGLOBIN (BEAKER) (test asds=398) 13.7 GM/DL 12.0-15.0 HEMATOCRIT (BEAKER) (test ouzl=954) 42.1 % 36.0-45.0 MEAN CORPUSCULAR VOLUME (BEAKER) (test enxj=977) 99.2 fL 82.0-99.0 MEAN CORPUSCULAR HEMOGLOBIN (BEAKER) (test msev=607) 32.3 pg 27.0-33.0 MEAN CORPUSCULAR HEMOGLOBIN CONC (BEAKER) (test bgsv=361) 32.5 GM/DL 32.0-36.0 RED CELL DISTRIBUTION WIDTH (BEAKER) (test uaoh=733) 13.0 % 10.3-14.2 PLATELET COUNT (BEAKER) (test psaf=184) 159 K/CU MM 150-430 MEAN PLATELET VOLUME (BEAKER) (test hvjh=204) 7.6 fL 6.5-10.5 NUCLEATED RED BLOOD CELLS (BEAKER) (test wqvu=139) 0 /100 WBC 0-0 NEUTROPHILS RELATIVE PERCENT (BEAKER) (test xiwy=409) 45 % LYMPHOCYTES RELATIVE PERCENT (BEAKER) (test lkih=180) 39 % MONOCYTES RELATIVE PERCENT (BEAKER) (test itwb=632) 11 % EOSINOPHILS RELATIVE PERCENT (BEAKER) (test qrwy=253) 4 % BASOPHILS RELATIVE PERCENT (BEAKER) (test hpmv=406) 1 % NEUTROPHILS ABSOLUTE COUNT (BEAKER) (test pejz=312) 2.76 K/ L 1.80-8.00 LYMPHOCYTES ABSOLUTE COUNT (BEAKER) (test sqqa=413) 2.36 K/ L 1.48-4.50 MONOCYTES ABSOLUTE COUNT (BEAKER) (test deif=889) 0.64 K/ L 0.00-1.30 EOSINOPHILS ABSOLUTE COUNT (BEAKER) (test dmly=964) 0.26 K/ L 0.00-0.50 BASOPHILS ABSOLUTE COUNT (BEAKER) (test gfty=777) 0.06 K/ L 0.00-0.20 0.00LIPID [id number] 02:46:00* Test Item Value Reference Range Comments TRIGLYCERIDES (BEAKER) (test oopa=436) 88 mg/dL CHOLESTEROL (BEAKER) (test wpoo=194) 125 mg/dL HDL CHOLESTEROL (BEAKER) (test iehl=523) 20 mg/dL LDL CHOLESTEROL CALCULATED (BEAKER) (test kptw=373) 87 mg/dL Triglyceride Reference Range: Low Risk <150 Borderline 150-199 High Risk 200-499 Very High Risk >=500Cholesterol Reference Range: Low Risk <200 Borderline 200-239 High Risk >240HDL Cholesterol Reference Range: Low Risk >=60 High Risk <40LDL Cholesterol Reference Range: Optimal <100 Near Optimal 100-129 Borderline 130-159 High 160-189 Very High >=190 Fasting BASIC METABOLIC [id number] 02:46:00* Test Item Value Reference Range Comments SODIUM (BEAKER) (test ukko=151) 143 meq/L 136-145 POTASSIUM (BEAKER) (test ptrh=578) 4.0 meq/L 3.5-5.1 CHLORIDE (BEAKER) (test cjmu=704) 108 meq/L 98-107 CO2 (BEAKER) (test okuw=296) 25 meq/L 22-29 BLOOD UREA NITROGEN (BEAKER) (test rogj=412) 15 mg/dL 7-21 CREATININE (BEAKER) (test pccn=975) 0.70 mg/dL 0.57-1.25 GLUCOSE RANDOM (BEAKER) (test yqwa=183) 110 mg/dL 70-105 CALCIUM (BEAKER) (test uzma=017) 9.1 mg/dL 8.4-10.2 EGFR (BEAKER) (test lqtg=0065) 86 mL/min/1.73 sq m ESTIMATED GFR IS NOT ACCURATE CREATININE CLEARANCE IN PREDICTING GLOMERULAR FILTRATION RATE. ESTIMATED GFR IS NOT APPLICABLE FOR DIALYSIS PATIENTS. FastingURINALYSIS W/ [id number] 02:42:00* Test Item Value Reference Range Comments COLOR (BEAKER) (test ypck=810) Yellow CLARITY (BEAKER) (test hges=243) Hazy SPECIFIC GRAVITY UA (BEAKER) (test yvbu=216) 1.013 1.001-1.035 PH UA (BEAKER) (test vnjd=709) 6.0 5.0-8.0 PROTEIN UA (BEAKER) (test pwhj=922) 10 mg/dL Negative GLUCOSE UA (BEAKER) (test ztey=012) Negative Negative KETONES UA (BEAKER) (test icch=503) Negative Negative BILIRUBIN UA (BEAKER) (test hjqv=229) Negative Negative BLOOD UA (BEAKER) (test eacg=802) Negative Negative NITRITE UA (BEAKER) (test atgc=979) Negative Negative LEUKOCYTE ESTERASE UA (BEAKER) (test fbgp=466) Negative Negative UROBILINOGEN UA (BEAKER) (test eivs=268) 0.2 mg/dL 0.2-1.0 RBC UA (BEAKER) (test wqlo=660) 1 /HPF WBC UA (BEAKER) (test fggd=263) 1 /HPF MUCUS (BEAKER) (test mkgs=1262) Rare SQUAMOUS EPITHELIAL (BEAKER) (test daow=761) 3 /HPF AMORPHOUS CRYSTALS (BEAKER) (test yxgp=0347) Occasional SOURCE(BEAKER) (test acce=6988) [id number] 02:29:00* Test Item Value Reference Range Comments PARTIAL THROMBOPLASTIN TIME (BEAKER) (test lnij=604) 26.2 seconds 22.5-36.0 PROTHROMBIN TIME/[id number] 02:28:00* Test Item Value Reference Range Comments PROTIME (BEAKER) (test wlpu=146) 14.1 seconds 11.7-14.7 INR (BEAKER) (test qkta=847) 1.1 <=5.9 RECOMMENDED COUMADIN/WARFARIN INR THERAPY RANGESSTANDARD DOSE: 2.0 - 3.0 Inclu harshil: PROPHYLAXIS for venous thrombosis, systemic embolization; TREATMENT for geoffrey ous thrombosis and/or pulmonary embolus.HIGH RISK: Target INR is 2.5-3.5 for pat ients with mechanical heart valves.DRUG SCREEN [id number] 18:56:00* Test Item Value Reference Range Comments FT (test code=AMPHET) Negative (qualifier value) FT (test code=WESLY) Negative (qualifier value) FT (test code=BENZO) Negative (qualifier value) FT (test code=SANTY) Negative (qualifier value) FT (test code=MTD) Negative (qualifier value) FT (test code=OPIAT) Negative (qualifier value) FT (test code=PCP) Negative (qualifier value) The following table provides an interpretive guide for the Drugs of Abuse ran on the [employer] 5.1 analyzer listed there in: Amphetamines < 1000 ng/ml=Negative Barbituates < 200 ng/ml=Negative Benzodiazapines < 200 ngml=Negative Cocaine < 300 ng/ml=Negative Methadone < 300 ng/ml=Negative Opiate < 300 ng/ml=Negative PCP < 25 ng/ml=Negative THC < 50 ng/ml=Negative Results equal to or greater than the above cut- off values=Presumptive Positive. Confirmation of Presumptive Positive results a re available upon request. FT (test code=THC) Negative (qualifier value) URINALYSIS WITH [id number] 18:37:00* Test Item Value Reference Range Comments Color (test code=UCOLR) Lt. Yellow Clarity (test code=UCLAR) CLEAR Glucose (test code=UGLUC) NEGATIVE NEGATIVE Bilirubin (test code=UBILI) NEGATIVE NEGATIVE Ketones (test code=UKET) NEGATIVE NEGATIVE Specific [place] (test code=USPGR) <=1.005 1.005-1.030 Blood (test code=UBLD) NEGATIVE NEGATIVE PH (test code=UPH) 5.0 4.5-8.0 Protein (test code=UPROT) NEGATIVE NEGATIVE Urobilinogen (test code=U UROB) 0.2 >0.2 Nitrite (test code=UNITR) NEGATIVE NEGATIVE Leukocyte Esterase (test code=ULEUK) NEGATIVE NEGATIVE WBC (test code=WBCUR) 0-1 0-5 RBC (test code=RBCUR) 0-1 0-5 Epithial Cells (test code=U EPI) 5-10 0-10 Mucous (test code=UMUC) None Seen None Seen Bacteria (test code=UBACT) Trace None Seen,Trace TROPONIN-I [id number] 16:24:00* Test Item Value Reference Range Comments Troponin-I (test code=TROP) <0.012 ng/ml 0.000-0.034 The 99th Percentile URL is 0.034 ng/mL. The Joint Society of Cardiology/[place] [employer] (ESC/ACC) and the National Academy of Clinical Biochemistry Standards of Laboratory Practices (NACB) recommends that the diagnosis of AMI includes the presence of clinical history suggestive of Acute Coronary Syndrome (ACS) and a maximum concentration of cardiac troponin exceeding the 99th percentile of a normal reference population [upper reference limit (URL)] on at least one occasion during the first 24 hours after the clinical event. [id number] 16:24:00* Test Item Value Reference Range Comments CPK (test code=CPK) 49 U/L 30-135 [id number] 16:09:00* Test Item Value Reference Range Comments Glucose (test code=GLU) 87 mg/dl 75-110 BUN (test code=BUN) 11.0 mg/dl 6.0-17.0 Creatinine (test code=CREA) 0.5 mg/dl 0.4-1.2 Sodium (test code=NA) 149 mmol/l 137-145 Potassium (test code=K) 4.2 mmol/l 3.5-5.0 Chloride (test code=CL) 105 mmol/l 98-107 CO2 (test code=CO2) 29 mmol/l 22-30 Anion Gap (test code=GAP) 15 Calcium (test code=CALC) 9.8 mg/dl 8.4-10.2 T Protein (test code=TP) 7.4 gm/dl 5.1-8.7 Albumin (test code=ALB) 3.9 gm/dl 3.5-4.6 A/G Ratio (test code=AGRAT) 1.1 % 1.1-2.2 AST (SGOT) (test code=AST) 75 U/L 11-36 ALT (SGPT) (test code=ALT) 101 U/L 11-40 Alkaline Phos (test code=ALKP) 99 U/L 47-114 Total Bilirubin (test code=TBIL) 0.6 mg/dl 0.2-1.2 Globulin (test code=GLOBU) 3.5 gm/dl 2.3-3.5 Calcium, Corrected (test code=CALCCORR) 9.9 mg/dl 8.4-10.2 Various formulas exist for corrected serum calcium results, each yielding different values. This corrected result was based on the formula: Corrected Calcium=SerumCalcium + [0.8 * ( 4 - SerumAlbumin)] EGFR if (test code=EGFRAA) >60 mL/min/1.73m\\S\\2 EGFR if Non- (test code=EGFRNA) >60 mL/min/1.73m\\S\\2 Estimated Glomerular Filtration Rate (eGFR) Reference Intervals Decision Points for 18 years and older and average body mass: >=60 Does not exclude kidney disease. 30 - 59 Suggests moderate chronic kidney disease and indicates the need for further investigation including assessment of proteinuria and cardiovascular factors. < 30 Usually indicates a need for referral for assessment and management of chronic kidney failure. CBC WITH AUTO [id number] 15:49:00* Test Item Value Reference Range Comments WBC (test code=WBC) 6.5 k/ul 4.8-10.8 RBC (test code=RBC) 4.68 Millions/ul 4.20-5.40 Hemoglobin (test code=HGB) 14.4 gm/dl 12.0-14.0 Hematocrit (test code=HCT) 43.7 % 37.0-47.0 MCV (test code=MCV) 93.2 fL 81.0-99.0 MCH (test code=MCH) 30.8 pg 27.0-31.0 MCHC (test code=MCHC) 33.0 gm/dl 33.0-37.0 RDW (test code=RDWVC) 13.5 % 11.5-14.5 Platelet (test code=PLT) 175 k/ul 130-400 MPV (test code=MPV) 8.6 fL 7.4-10.4 NE% (test code=NE) 59.3 % 42.0-75.0 LY% (test code=LY) 29.8 % 13.0-42.0 MO% (test code=MO) 8.3 % 4.0-14.0 EO% (test code=EO) 2.2 % 1.0-3.0 BA% (test code=BA) 0.4 % 1.0-3.0 NRBC, Auto (test code=NRBC_AUTO) 0 /100WBC 0-0
--- OUTSIDE RECORDS SUMMARY | 2019-07-19 14:46 | XMS REPORT | Continuity of Care Document ---
Author Author [facility] Address [address] [place] [address] ;ext= Care Team Providers Care Spa Experience Coordinator Name Role Phone PIPPA PALOMINO Admphys PIPPA PALOMINO Attphys NONE, NONE PCP Unavailable DR KRISTEN OSMAN PCP Hospital Admission Diagnosis Code Admission Diagnosis Date [id number] Hip pain Social History Element Description Code Description Smoking Status Code System Start Date End Date Smoking Status [id number] Heavy tobacco smoker SNOMED-CT Problems Code Code System Problem Name Start Date End Date Status 959921798 SNOMED-CT Lumbar radiculopathy 04/04/2018 Active 89665529 SNOMED-CT Pyelonephritis 01/07/2018 Active 39739018 SNOMED-CT Headache 09/13/2017 Active 480812663 SNOMED-CT Transient cerebral ischemia 02/22/2017 Active 728842288 SNOMED-CT Slurred speech 02/22/2017 Active 401597766 SNOMED-CT Altered mental status 02/22/2017 Active 59752837 SNOMED-CT Chronic obstructive lung disease Unknown Unknown Active 16937684 SNOMED-CT Hypertensive disorder Unknown Active Medications RxNorm Medication Dose Route Instructions Indications Start Date End Date Status 471263 Acetaminophen 300 MG / Codeine Phosphate 30 MG Oral Tablet 1 tablet Oral orally 3 times per day as needed. Pain Active 718915 Albuterol 1 MG/ML Inhalant Solution 2.5 MG/0.5 ML INHALATION INHALATION Q4HP as needed. 08/14/2014 Active 979060 Ibuprofen 800 MG Oral Tablet 800 milligram Oral orally 3 times per day Active 643648 Ipratropium [place] 0.2 MG/ML Inhalant Solution 500 MCG/2.5 ML INHALATION INHALATION Q4HP as needed. 08/14/2014 Active 295280 Levofloxacin 750 MG Oral Tablet 750 milligram Oral orally every 24 hours (4 days) Active NICOTINE PATCH 24HR 21 MG TOPICAL TOPICAL ONCE A DAY 01/07/2018 Active 138777 Sertraline 25 MG Oral Tablet 25 milligram Oral orally every day Active 720946 10 ML Sodium Chloride 9 MG/ML Prefilled Syringe 10 ML INTRAVENOUS INTRAVENOUS PROTOCOL as needed. 08/14/2014 No Longer Active 933255 12 HR Guaifenesin 600 MG Extended Release Oral Tablet [Mucinex] 600 MG ORAL ORAL Q12H 08/14/2014 No Longer Active 610004 Acetaminophen 325 MG Oral Tablet [Tylenol] 650 MG ORAL ORAL TIDP as needed. 08/14/2014 No Longer Active 779933 Acyclovir 400 MG Oral Tablet 400 milligram Oral orally 2 times per day No Longer Active CETIRIZINE HCL TABLET 10 MG ORAL ORAL QDAY 08/14/2014 No Longer Active 155182 Levofloxacin 500 MG Oral Tablet 500 milligram Oral orally every day (5 day) No Longer Active Medrol 1 package Oral orally Per package directions No Longer Active NICOTINE PATCH 24HR 21 MG TRANSDERMAL TRANSDERMAL Q24H 08/14/2014 No Longer Active SALINE FLUSH 10ML (BAG OF 5) SYRINGE 1 BAG INTRAVENOUS INTRAVENOUS PROTOCOL as needed. 08/14/2014 No Longer Active Allergies Code Code System Allergy Substance Type Reaction Severity Start Date End Date Status 7986 RXNorm Penicillins Drug allergy Unknown Active 8002 RXNorm Talwin Drug allergy Unknown Active 1191 RXNorm aspirin Drug allergy Unknown Active 4266408 RXNorm latex Drug allergy Unknown Active Results Radiology Results Order: [id number] XR HIP 2-3 VIEWs W AP PELVIS* Exam Completion Date:04/04/2018 14:49 Pelvis and right hip 3 views:History: Right hip pain after fallingAn AP view of the pelvis and 2 view examination of the right hip were obtained.No pelvic fract ure is identified. There is no widening of the pubic symphysis orsacroiliac join ts. The sacral neural arches appear symmetric and intact.AP and frog-leg lateral views of the right hip show no fracture or dislocation.No joint space narrowing is noted. The soft tissues show no significantabnormality.Impression: No signif icant bony or joint abnormality.This final report was electronically signed by Vivek Chang MD 04/04/20183:29 PMDictated By: Hemal CHANGte: 018 15:35 Order: [id number] XR L-S SPINE MIN 4 V* Exam Completion Date:04/04/2018 14:48 Lumbar spine series 5 views:History: Fell, low back painAP, lateral, spot latera l and both oblique views were obtained. No fracture orsubluxation. No disc space narrowing is noted. A vacuum disc is present at L5-S1and there is facet arthros is also noted at this level. No pars defects arenoted. The pedicles are intact.I mpression: No acute abnormality of the lumbar spine. Degenerative changes atthe lumbosacral region as noted.This final report was electronically signed by Dr Rahul Chang MD 04/04/20183:28 PMDictated By: Hemal CHANGte: 04/04/2018 15:35 Vital Signs Vitals Value Date Body Temperature 98.8 F 04/04/2018 Respiratory Rate 18 04/04/2018 O2% BldC Oximetry 100 04/04/2018 BP Systolic 130 mmHg 04/04/2018 BP Diastolic 79 mmHg 04/04/2018 Height 59 in 04/04/2018 Weight Measured 115.03 lbs 04/04/2018 BSA (Body Surface Area) 1.62701 04/04/2018 BMI (Body Mass Index) 23.4 04/04/2018 Plan of Care * No data in the system Procedures Code Code System Procedure Name Target Site Date of Procedure XR HIP 2-3 VIEWs W AP PELVIS 04/04/2018 15:35 Encounters Date Code Diagnosis Status (ICD10) - M5416 RADICULOPATHY LUMBAR REGION Active Immunizations Vaccine Code Code System Vaccine Name Date Status 999 CVX unknown vaccine or immune globulin Completed 88 CVX influenza virus vaccine, NOS 08/15/2014 Completed 109 CVX pneumococcal vaccine, NOS 08/15/2014 Completed Functional Status * No data in the system Hospital Discharge Instructions * Discharge Instructions 2* Discharge Diagnosis* Lumbar Radiculopathy; Lower Back Exercises * Important Information* Consult your physician or return to the Emergency Department immediately if worse, if not better as expected, or if any problems arise. * Follow Up Care* Yes * Important Information* Please understand that you have received care only on an emergency basis. If your condition does not improve, you should call your personal physician for follow-up care. If you do not have a physician, you may call the referred physician listed. * If you have questions about your care or these discharge instructions, you may call the Emergency Department. Please take your discharge paperwork with you to any follow-up appointments. * Follow-Up With:* Primary Care Physician * Activity Level* As tolerated, unrestricted * Diet* Regular * Prescriptions Given Via:* Printed and given to patient/caregiver. * Patient Teaching* Patient education provided * Disease Process * Pain Control * Activities
--- OUTSIDE RECORDS SUMMARY | 2019-07-19 14:46 | XMS REPORT | Continuity of Care Document ---
Author Author [facility] Address [address] [place] [address] ;ext= Support Name Relationship Address Phone SATURNINO LACKEY Unknown Hospital Admission Diagnosis * No data in the System SOCIAL HISTORY * Smoking Status - No data in the system Problems Code Code System Problem Name Start Date End Date Status 93213632 SNOMED-CT Pyelonephritis 01/07/2018 Active 67796250 SNOMED-CT Headache 09/13/2017 Active 286451497 SNOMED-CT Transient cerebral ischemia 02/22/2017 Active 857927882 SNOMED-CT Slurred speech 02/22/2017 Active 541282291 SNOMED-CT Altered mental status 02/22/2017 Active 72670915 SNOMED-CT Chronic obstructive lung disease Unknown Unknown Active 52706911 SNOMED-CT Hypertensive disorder Unknown Active Medications RxNorm Medication Dose Route Instructions Indications Start Date End Date Status 967485 Albuterol 1 MG/ML Inhalant Solution 2.5 MG/0.5 ML INHALATION INHALATION Q4HP as needed. 08/14/2014 Active 627468 Ipratropium [place] 0.2 MG/ML Inhalant Solution 500 MCG/2.5 ML INHALATION INHALATION Q4HP as needed. 08/14/2014 Active 546331 Levofloxacin 750 MG Oral Tablet 750 milligram Oral orally every 24 hours (4 days) Active NICOTINE PATCH 24HR 21 MG TOPICAL TOPICAL ONCE A DAY 01/07/2018 Active 375186 Sertraline 25 MG Oral Tablet 25 milligram Oral orally every day Active 464151 10 ML Sodium Chloride 9 MG/ML Prefilled Syringe 10 ML INTRAVENOUS INTRAVENOUS PROTOCOL as needed. 08/14/2014 No Longer Active 905620 12 HR Guaifenesin 600 MG Extended Release Oral Tablet [Mucinex] 600 MG ORAL ORAL Q12H 08/14/2014 No Longer Active 090793 Acetaminophen 325 MG Oral Tablet [Tylenol] 650 MG ORAL ORAL TIDP as needed. 08/14/2014 No Longer Active 663618 Acyclovir 400 MG Oral Tablet 400 milligram Oral orally 2 times per day No Longer Active CETIRIZINE HCL TABLET 10 MG ORAL ORAL QDAY 08/14/2014 No Longer Active 956017 Levofloxacin 500 MG Oral Tablet 500 milligram [...] 1191 RXNorm aspirin Drug allergy Unknown Active 1923454 RXNorm latex Drug allergy Unknown Active Results * No data in the system Vital Signs * No data in the system Plan of Care * No data in the system Procedures * No data in the system Encounters * No data in the system Immunizations Vaccine Code Code System Vaccine Name Date Status 999 CVX unknown vaccine or immune globulin Completed 88 CVX influenza virus vaccine, NOS 08/15/2014 Completed 109 CVX pneumococcal vaccine, NOS 08/15/2014 Completed Functional Status * No data in the system Hospital Discharge Instructions * No data in the system
--- OUTSIDE RECORDS SUMMARY | 2019-07-19 14:46 | XMS REPORT | Continuity of Care Document ---
Author Author [facility] Organization [facility] Address [address] [place] [address] ;ext= Care Team Providers Care Degree Clerk Name Role Phone MARIBEL CHRISTIE Admphys Unavailable MARIBEL CHRISTIE Attphys Unavailable NONE, NONE PCP Unavailable Hospital Admission Diagnosis Code Admission Diagnosis Date [id number] Abdominal pain Social History Element Description Code Description Smoking Status Code System Start Date End Date Smoking Status [id number] Current every day smoker SNOMED-CT Problems Code Code System Problem Name Start Date End Date Status 12086959 SNOMED-CT Pyelonephritis 01/07/2018 Active 80837649 SNOMED-CT Headache 09/13/2017 Active 209573553 SNOMED-CT Transient cerebral ischemia 02/22/2017 Active 657350460 SNOMED-CT Slurred speech 02/22/2017 Active 574320214 SNOMED-CT Altered mental status 02/22/2017 Active 62251479 SNOMED-CT Chronic obstructive lung disease Unknown Unknown Active 08888590 SNOMED-CT Hypertensive disorder Unknown Active Medications RxNorm Medication Dose Route Instructions Indications Start Date End Date Status 422122 Albuterol 1 MG/ML Inhalant Solution 2.5 MG/0.5 ML INHALATION INHALATION Q4HP as needed. 08/14/2014 Active 177758 Ipratropium [place] 0.2 MG/ML Inhalant Solution 500 MCG/2.5 ML INHALATION INHALATION Q4HP as needed. 08/14/2014 Active 358578 Sertraline 25 MG Oral Tablet 25 milligram Oral orally every day Active 454661 10 ML Sodium Chloride 9 MG/ML Prefilled Syringe 10 ML INTRAVENOUS INTRAVENOUS PROTOCOL as needed. 08/14/2014 No Longer Active 286717 12 HR Guaifenesin 600 MG Extended Release Oral Tablet [Mucinex] 600 MG ORAL ORAL Q12H 08/14/2014 No Longer Active 366496 Acetaminophen 325 MG Oral Tablet [Tylenol] 650 MG ORAL ORAL TIDP as needed. 08/14/2014 No Longer Active 253549 Acyclovir 400 MG Oral Tablet 400 milligram Oral orally 2 times per day No Longer Active CETIRIZINE HCL TABLET 10 MG ORAL ORAL QDAY 08/14/2014 No Longer Active 341551 Levofloxacin 500 MG Oral Tablet 500 milligram [...] 1191 RXNorm aspirin Drug allergy Unknown Active 7892704 RXNorm latex Drug allergy Unknown Active Results Laboratory Results Order: UA URINALYSIS WITH MICROSCOPY LOINC Test Result Flag Range Unit Date 5778 1Color:Type:Pt:Urine:Nom YELLOW 01/07/2018 17:50 5767-9 1Appearance:Aper:Pt:Urine:Nom SL CLOUDY 01/07/2018 17:50 2349-9 1Glucose:ACnc:Pt:Urine:Ord NEGATIVE NEGATIVE 01/07/2018 17:50 5770-3 1Bilirubin:ACnc:Pt:Urine:Ord:Test strip NEGATIVE NEGATIVE 01/07/2018 17:50 2514-8 1Ketones:ACnc:Pt:Urine:Ord:Test strip NEGATIVE NEGATIVE 01/07/2018 17:50 5811-5 1Specific gravity:Rden:Pt:Urine:Qn:Test strip >=1.030 A 1.005-1.030 01/07/2018 17:50 5794-3 1Hemoglobin:ACnc:Pt:Urine:Ord:Test strip LARGE A NEGATIVE 01/07/2018 17:50 5803-2 1pH:LsCnc:Pt:Urine:Qn:Test strip 6.0 A 4.5-8.0 01/07/2018 17:50 13591-1 1Protein:ACnc:Pt:Urine:Ord:Test strip 100 A NEGATIVE 01/07/2018 17:50 5818-0 1Urobilinogen:ACnc:Pt:Urine:Ord:Test strip 4.0 A 0.2 01/07/2018 17:50 5802-4 1Nitrite:ACnc:Pt:Urine:Ord:Test strip NEGATIVE NEGATIVE 01/07/2018 17:50 5799-2 1Leukocyte esterase:ACnc:Pt:Urine:Ord:Test strip NEGATIVE NEGATIVE 01/07/2018 17:50 5821-4 1Leukocytes:Naric:Pt:Urine sed:Qn:Microscopy.light.HPF 40-50 A 0-5 01/07/2018 17:50 94748-2 1Erythrocytes:Naric:Pt:Urine sed:Qn:Microscopy.light.HPF 20-30 A 0-5 01/07/2018 17:50 09869-3 1Epithelial cells.squamous:Naric:Pt:Urine sed:Qn:Microscopy.light.HPF 30-40 A 0-10 01/07/2018 17:50 8247-9 1Mucus:ACnc:Pt:Urine sed:Ord:Microscopy.light Trace A None Seen 01/07/2018 17:50 5769-5 1Bacteria:Naric:Pt:Urine sed:Qn:Microscopy.light.HPF Trace None Seen,Trace 01/07/2018 17:50 * Performing Lab Footnotes:* [address] [place] [address] [id number] - [address] [place] [address] [facility] - MD: DIRECTOR LELA VIDALES Order: CULTURE URINE COLONY COUNT LOINC Test Result Flag Range Unit Date Specimen: Urine Specimens 01/06/2018 21:30 Collected: 01/06/2018 21:30 01/06/2018 21:30 01/06/2018 21:30 Status: Final Last Updated: 01/08/2018 22:06 01/06/2018 21:30 01/06/2018 21:30 (1) er 5 01/06/2018 21:30 01/06/2018 21:30 01/06/2018 21:30 01/06/2018 21:30 Culture Result (Final) (Final) 01/06/2018 21:30 >100,000 cc/mL Gram Negative Bacilli 01/06/2018 21:30 01/06/2018 21:30 Isolate (Final) (Final) 01/06/2018 21:30 Escherichia coli 01/06/2018 21:30 Amoxicillin/clavu 4 S 01/06/2018 21:30 Ampicillin >=32 R 01/06/2018 21:30 Aztreonam <=1 S 01/06/2018 21:30 Cefazolin <=4 S 01/06/2018 21:30 Cefepime <=1 S 01/06/2018 21:30 Ceftriaxone <=1 S 01/06/2018 21:30 Ciprofloxacin 0.5 S 01/06/2018 21:30 Gentamicin >=16 R 01/06/2018 21:30 Imipenem <=0.25 S 01/06/2018 21:30 Levofloxacin 1 S 01/06/2018 21:30 Meropenem <=0.25 S 01/06/2018 21:30 Nitrofurantoin <=16 S 01/06/2018 21:30 Tetracycline >=16 R 01/06/2018 21:30 Trimeth/Sulfa >=320 R 01/06/2018 21:30 ESBL Negative - 01/06/2018 21:30 01/06/2018 21:30 Result before changed by [id number] on 01/08/2018 09:40: 01/06/2018 21:30 01/06/2018 21:30 Isolate (Prelim) (Prelim) 01/06/2018 21:30 <Escherichia coli 01/06/2018 21:30 01/06/2018 21:30 01/06/2018 21:30 Order: LACTIC ACID IH LOINC Test Result Flag Range Unit Date 1LACTATE 1.6 0.7-2.0 mmol/l 01/06/2018 20:20 * Performing Lab Footnotes:* [address] [place] [address] [id number] - [address] [facility] [place] [address] [place] [address] [facility] Lucretia [place]: DIRECTOR LELA VIDALES Order: FLU SCREEN LOINC Test Result Flag Range Unit Date 1Flu A Screen Negative Negative 01/06/2018 20:15 Note: EFFECTIVE 11/02/2013 - A method change has occurred. A molecular method for Flu testing will replace the current method. Both Flu A and Flu B will be tested and results will continue to be listed as 'Negative or Positive'. While this method is more specific in the detection of both strains, confirmatory testing is available upon request. ldh 1Flu B Screen Negative Negative 01/06/2018 20:15 Note: EFFECTIVE 11/02/2013 - A method change has occurred. A molecular method for Flu testing will replace the current method. Both Flu A and Flu B will be tested and results will continue to be listed as 'Negative or Positive'. While this method is more specific in the detection of both strains, confirmatory testing is available upon request. ldh * Performing Lab Footnotes:* [address] [facility] - [id number] - [address] [facility] [place] [address] [place] [address] [facility] - : DIRECTOR LELA VIDALES Order: CULTURE BLOOD LOINC Test Result Flag Range Unit Date Specimen: Blood 01/06/2018 20:05 Collected: 01/06/2018 20:05 01/06/2018 20:05 01/06/2018 20:05 Status: Final Last Updated: 01/08/2018 22:20 01/06/2018 20:05 01/06/2018 20:05 (1) er 5 01/06/2018 20:05 01/06/2018 20:05 01/06/2018 20:05 01/06/2018 20:05 Culture Result (Final) (Final) 01/06/2018 20:05 Gram Negative Bacilli 01/06/2018 20:05 01/06/2018 20:05 Isolate (Final) (Final) 01/06/2018 20:05 Escherichia coli 01/06/2018 20:05 Amoxicillin/clavu 8 S 01/06/2018 20:05 Ampicillin >=32 R 01/06/2018 20:05 Aztreonam <=1 S 01/06/2018 20:05 Cefazolin <=4 S 01/06/2018 20:05 Cefepime <=1 S 01/06/2018 20:05 Ceftriaxone <=1 S 01/06/2018 20:05 Ciprofloxacin 1 S 01/06/2018 20:05 Gentamicin >=16 R 01/06/2018 20:05 Imipenem <=0.25 S 01/06/2018 20:05 Levofloxacin 1 S 01/06/2018 20:05 Meropenem <=0.25 S 01/06/2018 20:05 Tetracycline >=16 R 01/06/2018 20:05 Trimeth/Sulfa >=320 R 01/06/2018 20:05 ESBL Negative - 01/06/2018 20:05 01/06/2018 20:05 Gram Stain (Final) (Final) 01/06/2018 20:05 Report called to Nurse Luke in ER @[id number] 01/07/2018rb. 01/06/2018 20:05 01/06/2018 20:05 1 of 2 blood cultures positive 01/06/2018 20:05 Gram Negative Bacilli 01/06/2018 20:05 01/06/2018 20:05 Result before changed by [id number] on 01/08/2018 14:31: 01/06/2018 20:05 01/06/2018 20:05 Gram Stain (Prelim) (Prelim) 01/06/2018 20:05 Report called to Nurse Luke in ER @[id number] 01/07/2018rb. 01/06/2018 20:05 01/06/2018 20:05 -Gram Negative Bacilli 01/06/2018 20:05 1 of 2 blood cultures positive 01/06/2018 20:05 01/06/2018 20:05 Result before changed by [email or web address] on 01/08/2018 09:39: 01/06/2018 20:05 01/06/2018 20:05 Culture Result (Prelim) (Prelim) 01/06/2018 20:05 -Escherichia coli 01/06/2018 20:05 01/06/2018 20:05 01/06/2018 20:05 Order: CBC PLATELET AUTO DIFF LOINC Test Result Flag Range Unit Date 19690-9 1Leukocytes^^corrected for nucleated erythrocytes:NCnc:Pt:Bld:Qn:Automated count 10.49 4.80-10.80 10^3/ul 01/06/2018 19:50 789-8 1Erythrocytes:NCnc:Pt:Bld:Qn:Automated count 4.22 4.20-5.40 10^6/ul 01/06/2018 19:50 718-7 1Hemoglobin:MCnc:Pt:Bld:Qn 13.6 12.0-14.0 gm/dl 01/06/2018 19:50 4544-3 1Hematocrit:VFr:Pt:Bld:Qn:Automated count 39.4 37.0-47.0 % 01/06/2018 19:50 787-2 1Erythrocyte mean corpuscular volume:EntVol:Pt:RBC:Qn:Automated count 93.4 81.0-99.0 fL 01/06/2018 19:50 785-6 1Erythrocyte mean corpuscular hemoglobin:EntMass:Pt:RBC:Qn:Automated count 32.2 H 27.0-31.0 pg 01/06/2018 19:50 786-4 1Erythrocyte mean corpuscular hemoglobin concentration:MCnc:Pt:RBC:Qn:Automated count 34.5 33.0-37.0 gm/dl 01/06/2018 19:50 788-0 1Erythrocyte distribution width:Ratio:Pt:RBC:Qn:Automated count 13.4 11.5-14.5 % 01/06/2018 19:50 777-3 1Platelets:NCnc:Pt:Bld:Qn:Automated count 180 130-400 10^3/ul 01/06/2018 19:50 78294-2 1Platelet mean volume:EntVol:Pt:Bld:Qn:Automated count 10.7 A 7.4-10.4 fL 01/06/2018 19:50 Note: 'NOT MEASURED' RESULTS ARE DISPLAYED WHEN THE INSTRUMENT HAS A SUPPRESSED OR UNREPORTABLE RESULT. THIS WILL MOST OFTEN HAPPEN WITH THE MPV WHEN THERE IS AN ABNORMAL PLATELET DISTRIBUTION DUE TO A CRITICAL LOW VALUE OR PLATELET CLUMPING. THE RDW MAY BE SUPPRESSED IF THERE ARE MULTIPLE PEAKS PRESENT ON THE RBC HISTOGRAM. IN THIS CASE, A MANUAL REVIEW OF THE SLIDE WILL BE PERFORMED, AND RBC MORPHOLOGY WILL BE NOTED ON THE REPORT. 770-8 1Neutrophils/100 leukocytes:NFr:Pt:Bld:Qn:Automated count 72.2 42.0-75.0 % 01/06/2018 19:50 736-9 1Lymphocytes/100 leukocytes:NFr:Pt:Bld:Qn:Automated count 15.1 13.0-42.0 % 01/06/2018 19:50 5905-5 1Monocytes/100 leukocytes:NFr:Pt:Bld:Qn:Automated count 11.2 4.0-14.0 % 01/06/2018 19:50 713-8 1Eosinophils/100 leukocytes:NFr:Pt:Bld:Qn:Automated count 0.4 L 1.0-3.0 % 01/06/2018 19:50 706-2 1Basophils/100 leukocytes:NFr:Pt:Bld:Qn:Automated count 0.3 L 1.0-3.0 % 01/06/2018 19:50 1IG% 0.8 H 0.0-0.4 % 01/06/2018 19:50 * Performing Lab Footnotes:* [address] [place] [address] - [id number] - [address] - [facility] [place] [address] [facility] - : DIRECTOR LELA VIDALES Order: CMP COMPREHENSIVE METABOLIC PANEL LOINC Test Result Flag Range Unit Date 2350-05 1Glucose:MCnc:Pt:Urine:Qn 182 H 75-110 mg/dl 01/06/2018 19:50 3094-0 1Urea nitrogen:MCnc:Pt:Ser/Plas:Qn 15 6.0-17.0 mg/dl 01/06/2018 19:50 2160-0 1Creatinine:MCnc:Pt:Ser/Plas:Qn 0.5 0.4-1.2 mg/dl 01/06/2018 19:50 2951-2 1Sodium:SCnc:Pt:Ser/Plas:Qn 140 137-145 mmol/l 01/06/2018 19:50 2823-3 1Potassium:SCnc:Pt:Ser/Plas:Qn 3.6 3.5-5.0 mmol/l 01/06/2018 19:50 2075-0 1Chloride:SCnc:Pt:Ser/Plas:Qn 104 98-107 mmol/l 01/06/2018 19:50 8-9 1Carbon dioxide:SCnc:Pt:Ser/Plas:Qn 25 22-30 mmol/l 01/06/2018 19:50 85235-4 1Calcium:MCnc:Pt:Ser/Plas:Qn 8.6 8.4-10.2 mg/dl 01/06/2018 19:50 2885-2 1Protein:MCnc:Pt:Ser/Plas:Qn 7.2 5.1-8.7 gm/dl 01/06/2018 19:50 1751-7 1Albumin:MCnc:Pt:Ser/Plas:Qn 3.6 3.5-4.6 gm/dl 01/06/2018 19:50 1A/G Ratio 1 L 1.1-2.2 % 01/06/2018 19:50 1920-8 1Aspartate aminotransferase:CCnc:Pt:Ser/Plas:Qn 76 H 11-36 U/L 01/06/2018 19:50 1742-6 1Alanine aminotransferase:CCnc:Pt:Ser/Plas:Qn 83 H 11-40 U/L 01/06/2018 19:50 6768-6 1Alkaline phosphatase:CCnc:Pt:Ser/Plas:Qn 81 47-114 U/L 01/06/2018 19:50 1975- 1Bilirubin:MCnc:Pt:Ser/Plas:Qn 1 0.2-1.2 mg/dl 01/06/2018 19:50 1Globulin 3.6 H 2.3-3.5 gm/dl 01/06/2018 19:50 1Calcium, Corrected 8.9 8.4-10.2 mg/dl 01/06/2018 19:50 Note: Various formulas exist for corrected serum calcium results, each yielding different values. This corrected result was based on the formula: Corrected Calcium=SerumCalcium + [0.8 * ( 4 - SerumAlbumin)] 1EGFR if >60 mL/min/1.73m^2 01/06/2018 19:50 1EGFR if Non- >60 mL/min/1.73m^2 01/06/2018 19:50 Note: Estimated Glomerular Filtration Rate (eGFR) Reference Intervals Decision Points for 18 years and older and average body mass: >=60 Does not exclude kidney disease. 30 - 59 Suggests moderate chronic kidney disease and indicates the need for further investigation including assessment of proteinuria and cardiovascular factors. < 30 Usually indicates a need for referral for assessment and management of chronic kidney failure. * Performing Lab Footnotes:* [address] [place] [address] - [id number] - [address] [place] [address] [address] LUCINDA Boykin MD: DIRECTOR LELA VIDALES Order: LIPASE SERUM LOINC Test Result Flag Range Unit Date 1Lipase 71 8-223 U/L 01/06/2018 19:50 * Performing Lab Footnotes:* [address] [place] [address] - [id number] - [address] [facility] [address] [place] [address] [place] - MD: DIRECTOR LELA VIDALES Radiology Results Order: [id number] US RENAL & BLADDER (KIDNEYS)* Exam Completion Date:01/06/2018 20:14 Procedure: US RENAL Exam Date: 01/06/2018 8:14 PMOrdering Provider: MARIBEL Heinical Indication: Pain, kidney failureComparison: NoneTechnique: Real-ti me ultrasonography was obtained over the kidneys and urinarybladder and represen tative images were recorded.Findings:The right kidney measures 12.1 cm in length . Left kidney measures 12.6 cm inlength.No stones or hydronephrosis bilaterally. Normal renal cortical echogenicity.Bilateral ureteral jets are visualized. Echo genic debris is noted within thebladder.Impression: Unremarkable appearance of t he kidneys.Echogenic debris within the bladder, likely relating to complex urine . Correlatewith urinalysis.This final report was electronically signed by Dr Main Jimenez MD 01/07/2018 8:05AMDictated By: Arely JIMENEZte: 01/07/2018 08:12 Order: [id number] XR CHEST AP/PA 1 VIEW* Exam Completion Date:01/06/2018 20:14 Procedure: AP View Chest Exam date: 01/06/2018 8:14 PMOrdering Provider: MARIBEL Alfaroinical Indication: abdominal pain, Comparison: September 13 017Findings:Cardiomediastinal silhouette is within normal limits. The lungs are clear. No large pleural effusions or pneumothorax. Osseousstructures are nonacut e.No evidence of active tuberculosis.Lower cervical discectomy fusion construct. Impression:No acute cardiopulmonary process.This final report was electronically signed by Dr Bhavin Jimenez MD 01/07/2018 8:39AMDictated By: Trinity JIMENEZ: 08:45 Vital Signs Vitals Value Date Body Temperature 101.7 F 01/06/2018 Respiratory Rate 18 01/06/2018 O2% BldC Oximetry 97 01/06/2018 BP Systolic 128 mmHg 01/06/2018 BP Diastolic 72 mmHg 01/06/2018 Weight Measured 107.8 lbs 01/06/2018 Plan of Care * No data in the system Procedures Code Code System Procedure Name Target Site Date of Procedure XR CHEST AP/PA 1 VIEW 01/07/2018 08:45 US RENAL & BLADDER (KIDNEYS) 01/07/2018 08:12 Encounters Date Code Diagnosis Status (ICD10) - N12 TUBULO-INTERST NEPHRIT NOT AC/CHRN Active Immunizations Vaccine Code Code System Vaccine Name Date Status 999 CVX unknown vaccine or immune globulin Completed 88 CVX influenza virus vaccine, NOS 08/15/2014 Completed 109 CVX pneumococcal vaccine, NOS 08/15/2014 Completed Functional Status * No data in the system Hospital Discharge Instructions * No data in the system
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
--- OUTSIDE RECORDS SUMMARY | 2019-07-19 14:46 | XMS REPORT | Continuity of Care Document ---
Author Author [facility] Organization [facility] Address [address] [place] [address] ;ext= Care Team Providers Care Paint Crew Supervisor Name Role Phone DR KRISTEN OSMAN DR BRIAN ZAPATA NONE, NONE PCP Unavailable [facility] Admission Diagnosis Code Admission Diagnosis Date [id number] Urinary tract infectious disease Social History Element Description Code Description Smoking Status Code System Start Date End Date Smoking Status [id number] Light tobacco smoker SNOMED-CT Problems Code Code System Problem Name Start Date End Date Status 60675230 SNOMED-CT Pyelonephritis 01/07/2018 Active 26407395 SNOMED-CT Headache 09/13/2017 Active 140028319 SNOMED-CT Transient cerebral ischemia 02/22/2017 Active 847249730 SNOMED-CT Slurred speech 02/22/2017 Active 784625012 SNOMED-CT Altered mental status 02/22/2017 Active 06484227 SNOMED-CT Chronic obstructive lung disease Unknown Unknown Active 06861916 SNOMED-CT Hypertensive disorder Unknown Active Medications RxNorm Medication Dose Route Instructions Indications Start Date End Date Status 625658 Albuterol 1 MG/ML Inhalant Solution 2.5 MG/0.5 ML INHALATION INHALATION Q4HP as needed. 08/14/2014 Active 847162 Ipratropium [place] 0.2 MG/ML Inhalant Solution 500 MCG/2.5 ML INHALATION INHALATION Q4HP as needed. 08/14/2014 Active 743065 Levofloxacin 750 MG Oral Tablet 750 milligram Oral orally every 24 hours (4 days) Active NICOTINE PATCH 24HR 21 MG TOPICAL TOPICAL ONCE A DAY 01/07/2018 Active 708646 Sertraline 25 MG Oral Tablet 25 milligram Oral orally every day Active 999067 10 ML Sodium Chloride 9 MG/ML Prefilled Syringe 10 ML INTRAVENOUS INTRAVENOUS PROTOCOL as needed. 08/14/2014 No Longer Active 791757 12 HR Guaifenesin 600 MG Extended Release Oral Tablet [Mucinex] 600 MG ORAL ORAL Q12H 08/14/2014 No Longer Active 764565 Acetaminophen 325 MG Oral Tablet [Tylenol] 650 MG ORAL ORAL TIDP as needed. 08/14/2014 No Longer Active 628715 Acyclovir 400 MG Oral Tablet 400 milligram Oral orally 2 times per day No Longer Active CETIRIZINE HCL TABLET 10 MG ORAL ORAL QDAY 08/14/2014 No Longer Active 898468 Levofloxacin 500 MG Oral Tablet 500 milligram [...] 1191 RXNorm aspirin Drug allergy Unknown Active 0274447 RXNorm latex Drug allergy Unknown Active Results Laboratory Results Order: CBC PLATELET AUTO DIFF LOINC Test Result Flag Range Unit Date 32269-8 1Leukocytes^^corrected for nucleated erythrocytes:NCnc:Pt:Bld:Qn:Automated count 5.98 4.80-10.80 10^3/ul 01/09/2018 05:10 789-8 1Erythrocytes:NCnc:Pt:Bld:Qn:Automated count 3.85 L 4.20-5.40 10^6/ul 01/09/2018 05:10 718-7 1Hemoglobin:MCnc:Pt:Bld:Qn 12.2 12.0-14.0 gm/dl 01/09/2018 05:10 4544-3 1Hematocrit:VFr:Pt:Bld:Qn:Automated count 36.7 L 37.0-47.0 % 01/09/2018 05:10 787-2 1Erythrocyte mean corpuscular volume:EntVol:Pt:RBC:Qn:Automated count 95.3 81.0-99.0 fL 01/09/2018 05:10 785-6 1Erythrocyte mean corpuscular hemoglobin:EntMass:Pt:RBC:Qn:Automated count 31.7 H 27.0-31.0 pg 01/09/2018 05:10 786-4 1Erythrocyte mean corpuscular hemoglobin concentration:MCnc:Pt:RBC:Qn:Automated count 33.2 33.0-37.0 gm/dl 01/09/2018 05:10 788-0 1Erythrocyte distribution width:Ratio:Pt:RBC:Qn:Automated count 13.3 11.5-14.5 % 01/09/2018 05:10 777-3 1Platelets:NCnc:Pt:Bld:Qn:Automated count 141 130-400 10^3/ul 01/09/2018 05:10 68292-3 1Platelet mean volume:EntVol:Pt:Bld:Qn:Automated count 10.6 A 7.4-10.4 fL 01/09/2018 05:10 Note: 'NOT MEASURED' RESULTS ARE DISPLAYED WHEN [...] ON THE REPORT. 770-8 1Neutrophils/100 leukocytes:NFr:Pt:Bld:Qn:Automated count 63.9 42.0-75.0 % 01/09/2018 05:10 736-9 1Lymphocytes/100 leukocytes:NFr:Pt:Bld:Qn:Automated count 23.1 13.0-42.0 % 01/09/2018 05:10 5905-5 1Monocytes/100 leukocytes:NFr:Pt:Bld:Qn:Automated count 10.2 4.0-14.0 % 01/09/2018 05:10 713-8 1Eosinophils/100 leukocytes:NFr:Pt:Bld:Qn:Automated count 2 1.0-3.0 % 01/09/2018 05:10 706-2 1Basophils/100 leukocytes:NFr:Pt:Bld:Qn:Automated count 0.3 L 1.0-3.0 % 01/09/2018 05:10 1IG% 0.5 H 0.0-0.4 % 01/09/2018 05:10 * Performing Lab Footnotes:* [address] [place] [address] - [id number] - [address] [facility] [address] [place] [address] [facility] - MD: DIRECTOR LELA VIDALES Order: CMP COMPREHENSIVE METABOLIC PANEL LOINC Test Result Flag Range Unit Date 1Glucose 118 H 75-110 mg/dl 01/09/2018 05:10 1BUN 10 6.0-17.0 mg/dl 01/09/2018 05:10 1Creatinine 0.5 0.4-1.2 mg/dl 01/09/2018 05:10 1Sodium 142 137-145 mmol/l 01/09/2018 05:10 1Potassium 3.6 3.5-5.0 mmol/l 01/09/2018 05:10 1Chloride 110 H 98-107 mmol/l 01/09/2018 05:10 1CO2 27 22-30 mmol/l 01/09/2018 05:10 1Calcium 8.2 L 8.4-10.2 mg/dl 01/09/2018 05:10 1T Protein 5.8 5.1-8.7 gm/dl 01/09/2018 05:10 1Albumin 2.7 L 3.5-4.6 gm/dl 01/09/2018 05:10 1A/G Ratio 0.9 L 1.1-2.2 % 01/09/2018 05:10 1AST (SGOT) 59 H 11-36 U/L 01/09/2018 05:10 1ALT (SGPT) 68 H 11-40 U/L 01/09/2018 05:10 1Alkaline Phos 78 47-114 U/L 01/09/2018 05:10 1Total Bilirubin 0.4 0.2-1.2 mg/dl 01/09/2018 05:10 1Globulin 3.1 2.3-3.5 gm/dl 01/09/2018 05:10 1Calcium, Corrected 9.2 8.4-10.2 mg/dl 01/09/2018 05:10 Note: Various formulas exist for corrected serum calcium results, each yielding different values. This corrected result was based on the formula: Corrected Calcium=SerumCalcium + [0.8 * ( 4 - SerumAlbumin)] 1EGFR if >60 mL/min/1.73m^2 01/09/2018 05:10 1EGFR if Non- >60 mL/min/1.73m^2 01/09/2018 05:10 Note: Estimated Glomerular Filtration Rate (eGFR) Reference [...] chronic kidney failure. * Performing Lab Footnotes:* [address] [place] [address] - [id number] - [address] [address] [facility] - : DIRECTOR LELA VIDALES Order: ERYTHROCYTE SED RATE LOINC Test Result Flag Range Unit Date 1Sed Rate 44 H 0-35 mm/hr 01/09/2018 05:10 Note: EFFECTIVE 02-12-2014, THE METHODOLOGY USED FOR ERYTHROCYTE SEDIMENTATION RATE HAS CHANGED. THE NORMAL RANGES HAVE CHANGED. PLEASE NOTE THAT RANGES ARE DEFINED BY THE AGE OF THE PATIENT. NEW REFERENCE RANGES: Females 0-49 years old=0-25 mm/hr Females 50-999 years old=0-35 mm/hr Males 0-49 years old=0-20 mm/hr Males 50-999 years old=0-25 mm/hr * Performing Lab Footnotes:* 1[facility] - [id number] - [address] [place] [address] LUCINDA Boykin MD: DIRECTOR LELA VIDALES Order: HEPATITIS A ANTIBODY IGM LOINC Test Result Flag Range Unit Date 71581-5 1Hepatitis A virus Ab.IgM:ACnc:Pt:Ser/Plas:Ord:EIA Negative Negative 01/08/2018 04:12 * Performing Lab Footnotes:* 1[facility] - [address] - Order: HEPATITIS B CORE TOTAL LOINC Test Result Flag Range Unit Date 1HEPATITIS B CORE AB TOTAL 0.02 A Negative 01/08/2018 04:12 * Performing Lab Footnotes:* [address] [place] [address] [id number] - [address] [place] [address] LUCINDA Boykin MD: DIRECTOR LELA VIDALES Order: HEPATITIS B SURF ANTIBODY LOINC Test Result Flag Range Unit Date 5193-06 1Hepatitis B virus surface Ab:ACnc:Pt:Ser:Qn:EIA Negative Negative 01/08/2018 04:12 5193-8 1Hepatitis B virus surface Ab:ACnc:Pt:Ser:Qn:EIA 0 0.00-4.99 mIU/mL 01/08/2018 04:12 Note: Bs Signal Cutoff Interpretation Guide: < 5.00 mIU/mLNegativePatient [...] clinical significance is for values greater than >= 12 mIU/mL, other than the individual is considered to be immuned to HBV infection. * Performing Lab Footnotes:* [address] [place] [address] [id number] - [address] [place] [address] [facility] - MD: DIRECTOR LELA VIDALES Order: HEPATITIS C W REFLEX HCV RIBA LOINC Test Result Flag Range Unit Date 90996-5 1Hepatitis C virus Ab Signal/Cutoff:RelACnc:Pt:Ser/Plas:Qn:EIA >11.0 H 0.0-0.9 s/coratio 01/08/2018 04:12 * Performing Lab Footnotes:* 1[facility] - [address] [place] [address] [place] - Order: MAGNESIUM SERUM LOINC Test Result Flag Range Unit Date 1Magnesium 2.2 1.6-2.3 mg/dl 01/08/2018 04:12 * Performing Lab Footnotes:* [address] [place] [address] - [id number] - [address] [address] LUCINDA Boykin MD: DIRECTOR LELA VIDALES Order: CULTURE URINE COLONY COUNT LOINC Test Result Flag Range Unit Date Specimen: Urine Specimens 01/07/2018 17:50 Collected: 01/07/2018 17:50 01/07/2018 17:50 01/07/2018 17:50 Status: Final Last Updated: 01/10/2018 06:53 01/07/2018 17:50 01/07/2018 17:50 01/07/2018 17:50 Culture Result (Final) (Final) 01/07/2018 17:50 No Growth After 48 Hours 01/07/2018 17:50 01/07/2018 17:50 01/07/2018 17:50 Order: LACTIC ACID IH LOINC Test Result Flag Range Unit Date 1LACTATE 1.2 0.7-2.0 mmol/l 01/07/2018 16:51 * Performing Lab Footnotes:* [address] [place] [address] - [id number] - [address] [address] LUCINDA Boykin MD: DIRECTOR LELA L. [facility] Radiology Results Order: [id number] XR ABD SERIES W/PA CXR* Exam Completion Date:01/09/2018 16:50 Procedure: XR ABD SERIES W/PA CXR Order Date: 01/09/2018 4:50 PMOrderin g Provider: DR BRIAN ERICKSONlinical Indication: NV: Nausea and VomitingComparis on: None Findings:Lungs are clear. Heart size is within normal limits. Abdomen v iews show non-obstructive bowel gas pattern. No pneumoperitoneum. Moderate volum e stool burden.Surgical clips are seen in the right upper quadrant of the abdome n.Impression: No acute pulmonary process.Nonobstructive bowel gas pattern.This f inal report was electronically signed by Dr Mario Fish MD 01/10/20186:57 AMDi ctated By: ALFONZO FISHKDate: 01/10/2018 07:03 Order: [id number] CT ABD/ PELVIS W/O CON (RENAL STONE)* Exam Completion Date:01/07/2018 16:41 Procedure: CT ABD/ PELVIS W/O CON (RENAL STONE) Exam date: 01/07/2018 4: 41 PMOrdering Provider: CAYETANO Welchinical Indication: abnormal labsC omparison: NoneTechnique: Multiple axial helical CT images of the abdomen and pe lvis wereobtained . Coronal and sagittal reformatted images were also obt ained.This exam was performed according to the our departmental dose-optimizatio nprogram which includes automated exposure control, adjustment of the mA and/ork V according to patient size and/or use of iterative reconstruction techniques.Fi ndings:Posterior right diaphragmatic Bochdalek hernia.Partially visualized nonco ntrast evaluation of the liver and spleen isunremarkable. Surgical absence of th e gallbladder. Pancreas is unremarkable.Bilateral adrenal glands are unremarkabl e.Bilateral kidneys are unremarkable without evidence of radiopaque nephroureter alcalculi. There is mild left renal pelvic dilation. Small bowel isnonobstructiv e. No pneumoperitoneum or pathologic adenopathy is identified onthis noncontrast ed examination.Appendix is unremarkable. Appendicolith at the tip. Patchy coloni c stool.Scattered colonic diverticulosis.No free fluid in the pelvis. Small fat- containing umbilical hernia. Bladder isunremarkable. Uterus is surgically absent .Osseous structures are nonacute.Impression:No radiopaque nephroureteral calculi . Mild left renal pelvic dilation withoutobstructive stone. No substantial hydro ureteronephrosis.Scattered colonic diverticulosis.This final report was electron ically signed by Dr Gaby Jimenez MD 01/07/2018 6:00PMDictated By: GABY JIMENEZDate : 01/07/2018 18:07 Vital Signs Vitals Value Date Body Temperature 99.4 F 01/11/2018 Respiratory Rate 20 01/11/2018 O2% BldC Oximetry 94 01/11/2018 BP Systolic 168 mmHg 01/11/2018 BP Diastolic 79 mmHg 01/11/2018 Weight Measured 115.08 lbs 01/09/2018 BSA (Body Surface Area) 1.2743 01/07/2018 BMI (Body Mass Index) 33.9 01/07/2018 Height 49 in 01/07/2018 Plan of Care * No data in the system Procedures Code Code System Procedure Name Target Site Date of Procedure XR ABD SERIES W/PA CXR 01/10/2018 07:03 CT ABD/ PELVIS W/O CON (RENAL STONE) 01/07/2018 18:07 CERVICAL SPINE FUSION Unknown 84315002 SNOMED Cholecystectomy Unknown 798101072 SNOMED Hysterectomy Unknown LEFT ROTATOR CUFF SURGERY Unknown Encounters Date Code Diagnosis Status ([employer]) - 51100481 UTI SITE NOT SPECIFIED Active Immunizations Vaccine Code Code System Vaccine Name Date Status 999 CVX unknown vaccine or immune globulin Completed 88 CVX influenza virus vaccine, NOS 08/15/2014 Completed 109 CVX pneumococcal vaccine, NOS 08/15/2014 Completed Functional Status Code Functional/Cognitive Condition Code System Date Status 838930425 No speech problem (situation) [employer]-CT 01/11/2018 Active 196042507 Wears glasses [employer]-CT 01/11/2018 Active 738569493 Firm pressure touch, function (observable entity) [employer]-CT 01/11/2018 Active 371627369 Orientated SNOMED-CT 01/11/2018 Active 440525073 Orientated SNOMED-CT 01/11/2018 Active 975355511 Orientated SNOMED-CT 01/11/2018 Active 143947076 Oriented to person SNOMED-CT 01/11/2018 Active 392508074 Stable gait (finding) SNOMED-CT 01/08/2018 Active Hospital Discharge Instructions * Psychosocial* Patient/Family Concerns* None * Emotional State* Calm * Housing Type* House * Discharge Instructions* Discharge Diagnosis* LEFT POLYNEPHRITIS * Physician Name for Follow Up Appt #1* CALL TO SCHEDULE A FOLLOW UP APPT WITH YOUR PRIMARY CARE PHYSICIAN IN 4 DAYS FOR CBC, CMP TO BE DRAWN * Pneumonia Vaccine* Refused By Patient * IV Removed Date* 01/11/2018 * Copy of Advanced Directive given to Patient* No * Referral Required* None * Activity Level* As tolerated, unrestricted * Medications* Continue Present Medications * Diet* MAY RESUME PREVIOUS DIET. * Other * Discharge Instructions* Patient education provided * Follow Up Care* Yes * Patient To Schedule * Readmission Risk (LACE Score)* 7 * Written Discharge Plan given to the Patient at the time of discharge contains: * Reason for hospitalization * Discharge medications including what medications to take, how to take them, and how to obtain the medication. * Patient / family / caregiver given instructions on what to do if their condition changes. * Influenza Vaccine NOT Given, State Reason(s) Below:* Previously immunized during this flu season * Discharge Instructions 2* Wound / Incision Care* Not Applicable * Personal Belongings Returned To Patient/Family* Yes * Valuables Returned To Patient/Family* N/A * Person Receiving Discharge Instructions* BHAVANI STERLING * Discharge Instructions Explained To* Patient * Discharge Summary* Discharge Status* Vital Signs Stable * Patient Transferred/Discharged To* Home * Mode Of Discharge* Wheelchair * Patient Transferred/Discharged To* Relatives * Discharge Status* Afebrile * Accompanied By* Relatives * Discharge Status* Adequate Diet/Liquid Intake * Adequate Urinary Output * Adequate Bowel Functioning * Activity Tolerated within Physical Limits * Home Health Care Monitoring Required* No * Pain At Discharge* Denies Pain
[2019-07-19 17:35] LABS: BASOPHILS % 0.2 % (0.0-1.0); EOSINOPHILS # (AUTO) 0.1 (0.0-0.4); EOSINOPHILS % 2.1 % (0.0-6.0); HEMATOCRIT 40.9 % (34.2-44.1); HEMOGLOBIN 14.1 g/dL (12.0-16.0); LYMPHOCYTES # (AUTO) 1.8 (1.0-3.2); LYMPHOCYTES % 34.2 % (18.0-39.1); MEAN CORPUSCULAR HEMOGLOBIN 31.9 pg (28-32); MEAN CORPUSCULAR HGB CONC 34.5 g/dL (31-35); MEAN CORPUSCULAR VOLUME 92.5 fL (81-99); MONOCYTES # (AUTO) 0.5 (0.2-0.8); MONOCYTES % 8.6 % (4.4-11.3); NEUTROPHILS # (AUTO) 2.9 (2.1-6.9); NEUTROPHILS % 54.5 % (38.7-80.0); PLATELET COUNT 128 x10e3/uL (140-360); RED BLOOD COUNT 4.42 x10e6/uL (3.6-5.1)
--- NOTE | 2019-07-19 17:36 | NUR ---
Pt states she has been out of her BP medications x2 weeks and has not followed up with her PCP. Report and care hand off given to PEGGY Valentino
[2019-07-19 17:50] LABS: ALANINE AMINOTRANSFERASE 69 IU/L (0-55); ALBUMIN 3.4 g/dL (3.5-5.0); ALBUMIN/GLOBULIN RATIO 0.9 (0.8-2.0); ALKALINE PHOSPHATASE 90 IU/L (40-150); ANION GAP 11.8 mmol/L (8-16); BLOOD UREA NITROGEN 13 mg/dL (7-26); BUN/CREATININE RATIO 20 (6-25); CALCIUM 9.5 mg/dL (8.4-10.2); CARBON DIOXIDE 25 mmol/L (22-29); CHLORIDE 107 mmol/L (98-107); CREATINE KINASE 67 IU/L (29-168); CREATININE, SERUM 0.65 mg/dL (0.57-1.11); EST GLOMERULAR FILTRATION RATE > 60 ML/MIN (60-); GLUCOSE 98 mg/dL (74-118); POTASSIUM 3.8 mmol/L (3.5-5.1); SODIUM 140 mmol/L (136-145)
[2019-07-19] MEDS ORDERED: CARVEDILOL3.125 MG PO (17:55)
[2019-07-19 18:00] LABS: INR 0.96; PROTHROMBIN TIME 13.3 seconds (11.9-14.5)
[2019-07-19 18:05] LABS: PARTIAL THROMBOPLASTIN TIME 28.7 seconds (23.8-35.5)
[2019-07-19] MEDS ORDERED: ONDANSETRON HCL INJ 2MG/ML 2ML 2 MG/ML VIAL IV STA (18:12)
[2019-07-19 18:35] LABS: BILIRUBIN,URINE NEGATIVE (NEGATIVE); CLARITY,URINE SL CLOUDY (CLEAR); COLOR,URINE YELLOW (YELLOW); KETONES,URINE NEGATIVE (NEGATIVE); LEUKOCYTE ESTERASE ,URINE NEGATIVE (NEGATIVE); NITRITE,URINE POSITIVE (NEGATIVE); PROTEIN,URINE DIPSTICK 2+ (NEGATIVE); URINE UROBILINOGEN 0.2 mg/dL (0.2 - 1)
[2019-07-19 18:49] LABS: WBC,URINE (MAN) 0-5 /HPF (0-5)
--- NOTE | 2019-07-19 18:49 | Diagnostic Imaging Report ---
Examination: Single AP view of the chest. COMPARISON: None. INDICATION: Cough DISCUSSION: Lines/tubes: None. Lungs: The lungs are well inflated and clear. No pneumonia or pulmonary edema. Pleura: No pleural effusion or pneumothorax. Heart and mediastinum: The heart and the mediastinum are unremarkable. Bones and soft tissues: No acute bony abnormalities. IMPRESSION: 1. No acute cardiopulmonary abnormalities. Signed by: Dr. Thee Mcnamara M.D. on 07/19/2019 6:45 PM
[2019-07-19 18:50] LABS: BACTERIA,URINE MANY /HPF; EPITHELIAL CELLS,URINE RARE /LPF
--- NOTE | 2019-07-19 18:56 | Diagnostic Imaging Report ---
History: Headache, hypertension, history of brain aneurysm Comparison studies: None Technique: Axial images were obtained from the skull base to the vertex. Coronal and sagittal reconstructions obtained from the axial data. Dose modulation, iterative reconstruction, and/or weight based adjustment of the mA/kV was utilized to reduce the radiation dose to as low as reasonably achievable. Findings: Being hardening artifact from metallic earrings, degrades image quality. Scalp/skull: No abnormalities. No fractures, blastic or lytic lesions. Extra-axial spaces: No masses. No fluid collections. Brain sulci: Appropriate for age. Ventricles: Normal in size and configuration. No hydrocephalus. Parenchyma: No abnormal densities. No masses, hemorrhage, acute or chronic cortical vascular insults. Sellar/suprasellar region: No abnormalities Craniocervical junction: Patent foramen magnum. No Chiari one malformation. IMPRESSION: No abnormalities . Signed by: DR Pietro Morris M.D. on 07/19/2019 6:52 PM
[2019-07-19] MEDS ORDERED: AZITHROMYCIN250 MG PO (19:50)
[2019-07-19] MEDS ORDERED: CEFDINIR300 MG PO (19:56)
[2019-07-19] MEDS ORDERED: MACRODANTIN100 MG PO (19:56)
[2019-07-19 20:56] VITALS: BP 156/85
== END 2019-07-19 20:40 | disposition home or self-care (01) ==
LOC: ER 14:43
DX: R21 Rash and other nonspecific skin eruption (principal); J06.9 Acute upper respiratory infection, unspecified; R05 Cough; J44.9 Chronic obstructive pulmonary disease, unspecified; I10 Essential (primary) hypertension; E78.5 Hyperlipidemia, unspecified; Z86.73 Personal history of transient ischemic attack (TIA), and cerebral infarction without residual deficits; F17.210 Nicotine dependence, cigarettes, uncomplicated
CPT/HCPCS: 36415; 70450; 71045; 80053; 81001; 82550; 82553; 83518; 83880; 84484; 85025; 85610; 85730; 87070; 87086; 87186; 93005; 99284; J2405

== ENCOUNTER 2019-09-09 15:07 | Emergency (ER) | payer SELFPAY ==
[~2019-09-09] VITALS: Ht 149.9 cm; Wt 54.4 kg
[~2019-09-09 15:07] MED LIST: AZITHROMYCIN250 MG PO; CARVEDILOL3.125 MG PO; CEFDINIR300 MG PO; MACRODANTIN100 MG PO
--- NOTE | 2019-09-09 15:39 | NUR ---
PATIENT PLACED IN ROOM 11
[2019-09-09] MEDS ORDERED: SODIUM CHLORIDE 0.9% 1000ML 1,000 ML IV SCH (16:15)
[2019-09-09 16:22] LABS: BASOPHILS % 0.7 % (0.0-1.0); EOSINOPHILS # (AUTO) 0.2 (0.0-0.4); EOSINOPHILS % 2.8 % (0.0-6.0); HEMOGLOBIN 13.7 g/dL (12.0-16.0); LYMPHOCYTES # (AUTO) 1.9 (1.0-3.2); LYMPHOCYTES % 33.7 % (18.0-39.1); MEAN CORPUSCULAR HEMOGLOBIN 31.9 pg (28-32); MEAN CORPUSCULAR HGB CONC 33.4 g/dL (31-35); MEAN CORPUSCULAR VOLUME 95.3 fL (81-99); MONOCYTES # (AUTO) 0.5 (0.2-0.8); MONOCYTES % 8.9 % (4.4-11.3); NEUTROPHILS # (AUTO) 3.1 (2.1-6.9); NEUTROPHILS % 53.6 % (38.7-80.0); PLATELET COUNT 145 x10e3/uL (140-360); RED CELL DISTRIBUTION WIDTH 13.2 % (11.7-14.4)
[2019-09-09 16:40] LABS: ALANINE AMINOTRANSFERASE 82 IU/L (0-55); ALBUMIN/GLOBULIN RATIO 0.8 (0.8-2.0); ALKALINE PHOSPHATASE 105 IU/L (40-150); ANION GAP 13.5 mmol/L (8-16); BLOOD UREA NITROGEN 12 mg/dL (7-26); BUN/CREATININE RATIO 18 (6-25); CALCIUM 8.5 mg/dL (8.4-10.2); CARBON DIOXIDE 25 mmol/L (22-29); CHLORIDE 106 mmol/L (98-107); CREATININE, SERUM 0.66 mg/dL (0.57-1.11); EST GLOMERULAR FILTRATION RATE > 60 ML/MIN (60-); GLUCOSE 109 mg/dL (74-118); POTASSIUM 3.5 mmol/L (3.5-5.1); SODIUM 141 mmol/L (136-145)
[2019-09-09 16:48] LABS: BILIRUBIN,URINE NEGATIVE (NEGATIVE); CLARITY,URINE SL CLOUDY (CLEAR); COLOR,URINE YELLOW (YELLOW); KETONES,URINE NEGATIVE (NEGATIVE); LEUKOCYTE ESTERASE ,URINE NEGATIVE (NEGATIVE); NITRITE,URINE NEGATIVE (NEGATIVE); PROTEIN,URINE DIPSTICK 2+ (NEGATIVE); URINE UROBILINOGEN 1 mg/dL (0.2 - 1)
[2019-09-09 16:51] LABS: MAGNESIUM 1.7 MG/DL (1.3-2.1)
[2019-09-09 17:37] LABS: BACTERIA,URINE MODERATE /HPF; EPITHELIAL CELLS,URINE FEW /LPF; WBC,URINE (MAN) 0-5 /HPF (0-5)
== END 2019-09-09 18:21 | disposition home or self-care (01) ==
LOC: ER 15:07
DX: R74.0 Nonspecific elevation of levels of transaminase and lactic acid dehydrogenase [LDH] (principal); M62.838 Other muscle spasm; M32.9 Systemic lupus erythematosus, unspecified
CPT/HCPCS: 36415; 80053; 81001; 82550; 83735; 85025; 99284; J7030